=== PATIENT | female | born 1985 | race Caucasian/White ===

== ENCOUNTER 2021-07-23 14:06 | Emergency (ER) | payer MEDICAID, SELFPAY ==
--- NOTE | ~2021-07-23 | XR_ITS ---
EXAMINATION: XR chest 2V CLINICAL INFORMATION: Reason for Exam cough COMPARISON: No prior chest x-ray available in our system for comparison at the time of this dictation. TECHNIQUE: XR chest 2V Lungs and Soraya: Both lungs are clear. Pleura: Normal. Costophrenic angles are sharp. No pneumothorax. Heart: The heart is normal in size. Mediastinum: The mediastinum is within normal limits.. Bones: Skeletal structures included are normal for patient's age. XR/XR chest 2V IMPRESSION: Normal chest x-ray.
[2021-07-23 14:24] VITALS: BP 131/77; PULSE 62; RESP 18; TEMP 37.1; O2SAT 99; BMI 28.2
--- NOTE | 2021-07-23 15:56 | ED_ITS ---
HPI - Dental/Oral General Chief complaint: Dental/Oral Stated complaint: dental abscess Time Seen by Provider: 07/23/21 15:49 Source: patient Mode of arrival: ambulatory Limitations: no limitations History of Present Illness HPI Narrative: 36 y/o female presenting to the ER with left lower dental abscess and facial swelling that has been present for the last 3 days. She reports left- sided facial swelling that started yesterday and pain that extends to her ear and neck. She noticed a new bump in the back of her mouth on the left side. She reports a new onset of a cough and generally feeling unwell. Her son is sick with the ear infection and cough as well. She recently tested negative for COVID. She has a dentist at the [facility] in [place] but has not called them for this yet. she reports pain with eating and swallowing. She is able to eat and drink but her appetite is poor. MD Complaint: tooth pain Location: Tooth # (18) Onset (ago): day(s) (3) Duration: constant Severity: moderate Severity scale (1-10): 6 Relieving factors: nothing Exacerbating factors: chewing and swallowing Context: poor dental care Associated symptoms: gum swelling, pain with swallowing and ear pain Treatment prior to arrival: none Related Data Previous Rx's Medication Instructions Recorded benzonatate 100 mg capsule 100 mg PO Q6H PRN #10 cap 07/23/21 clindamycin HCl 300 mg capsule 300 mg PO Q6H 7 Days #28 cap 07/23/21 hydrocodone 5 mg-acetaminophen 325 1 tab PO Q6H PRN #10 tab 07/23/21 mg tablet ibuprofen 600 mg tablet 600 mg PO Q8H PRN #20 tab 07/23/21 Allergies Allergy/AdvReac Type Severity Reaction Status Date / Time No Known Allergies Allergy Unverified 05/20/20 17:00 Review of Systems Review of Systems: Constitutional: No Fever, No Chills ENT/Mouth: No sore throat, No Rhinorrhea, No Swallowing Difficulty, +tooth pain Cardiovascular: No Chest Pain, No SOB, No Orthopnea, No Edema Respiratory: + Cough, No Sputum, No Wheezing, No dyspnea Gastrointestinal: No Nausea, No Vomiting, No abdominal Pain Musculoskeletal: No joint pain, + Myalgias Skin: No Skin Lesions, No rash Neuro: No Weakness, No Numbness, No Dizziness, +Headache Psych: No Anxiety/Panic, No Depression Heme/Lymph: No Bruising, + Lymphadenopathy Endocrine: No Polyuria, No Polydipsia PMFSH Social History Social History Advance Directives: No Advance Directives Information Provided: No Patient : No Physical Exam Vital Signs: Vital Signs: Last Vital Signs Temp 98.6 F 07/23/21 16:09 Pulse 95 07/23/21 16:09 Resp 16 07/23/21 16:09 BP 138/75 07/23/21 16:09 Pulse Ox 99 07/23/21 16:09 Body Mass Index 28.2 Appearance: Alert. Oriented X3. No acute distress. Eyes: Pupils equal, round and reactive to light. ENT: Pharynx With moist mucous membranes, airway is patent with no tonsillomegaly, no tonsillar exudates, uvula midline normal voice. Handling secretions normally. posterior left lower jaw with a 1 cm fluctuant and tender area in the expected location of tooth 17, tooth 18. With silver dental filling, tenderness with associated gingival tenderness and swelling. Neck: Normal inspection. Neck supple. Submandibular lymphadenopathy on the left side. No neck swelling. CVS: Normal heart rate and rhythm. Pulses normal. Respiratory: No respiratory distress. Breath sounds normal. Dry hacking cough. Skin: Skin warm and dry. Normal skin color. Normal skin turgor. No rashes. Extremities: No lower extremity edema. Neuro: Oriented X 3. No motor deficit. No sensory deficit. Course Course Course Narrative: Guille 1-year-old female presenting with left-sided facial and dental pain. New onset of facial swelling this started yesterday. Pain extends to ear and neck. She has some pain with swallowing but airways patent with normal voice handling secretions normally eating and drinking normally. No neck swelling. She is nontoxic appearing with normal vital signs on arrival. She has a palpable dental abscess and is agreeable to drainage in the emergency room. Will give dose of pain control and antibiotics now. She also has a dry cough and other URI symptoms. Will get chest x-ray and COVID swab. Reevaluation(s) Reevaluation #1: Chest x-ray is clear COVID soft is negative. Dental abscess was incised with very minimal drainage. Discussed option blood working CT scan however patient would like to be discharged with oral antibiotics and treatment for pain - will plan to return to the ER if symptoms worsen despite treatment. She will follow-up with her dentist 1st thing Sunday morning. Safe for discharge home with antibiotics and pain control. MDM - Dental/Oral Lab Data Labs: Lab Results 07/23/21 Range/Units 16:10 COVID-19 (ERIKA) Negative (Negative) COVID-19 Clin Com See Note Procedures Abscess I/D Site: oral Side (if applicable): left Local Anesthetic: other anesthetic (Lollicane) Technique: incised with blade Sent for culture/gram staining?: No Irrigation: No Packing used?: none Complications: bleeding Critical Care Time Critical Care Time Critical Care Time: No Discharge Plan Discharge Clinical Impression: Dental abscess URI (upper respiratory infection) Qualifiers: URI type: unspecified URI Qualified Code(s): J06.9 - Acute upper respiratory infection, unspecified Patient Disposition: Home, Self-Care Instructions: Dental Abscess (ED), Upper Respiratory Infection (ED) Additional Instructions: take the prescribed antibiotic as directed, complete the entire course follow-up with your dentist on Sunday take the prescribed medications as needed for pain. do not drive after taking the hydrocodone, this can make you lethargic if you develop new or worsening symptoms call 911 or come back to the ER for further evaluation. Prescriptions: New clindamycin HCl 300 mg capsule 300 mg PO Q6H 7 Days Qty: 28 RF: 0 ibuprofen 600 mg tablet 600 mg PO Q8H PRN (Reason: pain) Qty: 20 RF: 0 hydrocodone-acetaminophen 5-325 mg tablet 1 tab PO Q6H PRN (Reason: pain) Qty: 10 RF: 0 benzonatate 100 mg capsule 100 mg PO Q6H PRN (Reason: cough) Qty: 10 RF: 0 Stand Alone Forms: Work/School Release
--- NOTE | 2021-07-23 16:00 | PC.NURSE ---
ot c/o mouth pain related to left cheek abscess. pt states the pain started 4 days ago and got worse gradually. she also c/o non-productive cough and sore throat. she reports she hasn't been able to eat solid foods over the past 4 days. pt denies n/v/d. pt alert and oriented x4, vss.
[2021-07-23 16:09] VITALS: BP 138/75; PULSE 95; RESP 16; TEMP 37; O2SAT 99
[2021-07-23] MEDS: HYDROcodone Bit/Acetam 5/325 TABLET 1 TAB PO (16:16)
[2021-07-23] MEDS: guaiFENesin DM 200/20/10 ML 10 ML SYRUP PO (16:16)
[2021-07-23 16:29] LABS: COVID-19 Test Negative (Negative)
[2021-07-23] MEDS: Clindamycin HCL 150 MG CAPSULE 450 MG PO (16:39)
== END 2021-07-23 17:39 | disposition home or self-care (01) ==
PROVIDERS: Physician Assistant; Emergency Provider Emergency Medicine Emergency Medical Services; PCP Nurse Practitioner Primary Care
DX: K04.7 Periapical abscess without sinus (principal); J06.9 Acute upper respiratory infection, unspecified; Z20.822 Contact with and (suspected) exposure to COVID-19
CPT/HCPCS: 36415; 41800; 71046; 87635; 99283; 99284

== ENCOUNTER → 2023-12-26 13:30 | Outpatient (BNV) | payer MEDICAID, SELFPAY | PROVIDERS: Visit Provider Physical Medicine & Rehabilitation | DX: M79.642 Pain in left hand (principal); R20.2 Paresthesia of skin | CPT/HCPCS: 95886; 95909 ==

== ENCOUNTER 2023-12-26 13:40 | Outpatient (REF) | payer MEDICAID, SELFPAY ==
--- NOTE | 2023-12-26 | EMG_ITS ---
Chief complaint: Left hand pain and numbness Reason for referral: Evaluate for Carpal Tunnel Syndrome Referred by: Minal Workman NP Procedure done: Left upper extremity NCS/EMG Precautions and/or limitations: None The limb temperature was monitored continuously and remained between 32-36 degrees C during the performance of the NCS. Nerve Conduction Studies Anti Sensory Summary Table ?Stim Site NR Onset (ms) Norm Onset (ms) Peak (ms) Norm Peak (ms) O-P Amp (?V) Norm O-P Amp Site1 Site2 Delta-0 (ms) Dist (cm) Cornel (m/s) Norm Cornel (m/s) Left Median Anti Sensory (2nd Digit) Wrist ? 2.4 3.5 <3.6 22.5 >10 Wrist 2nd Digit 2.4 14.0 58 Left Ulnar Anti Sensory (5th Digit) Wrist ? 2.2 2.8 <3.7 39.7 >15.0 Wrist 5th Digit 2.2 14.0 64 Motor Summary Table ?Stim Site NR Onset (ms) Norm Onset (ms) O-P Amp (mV) Norm O-P Amp iAmp (mV) Amp (1st) (%) Site1 Site2 Delta-0 (ms) Dist (cm) Cornel (m/s) Norm Cornel (m/s) Left Median Motor (Abd Poll Brev) Wrist ? 3.7 <3.9 9.8 >4.5 12.2 100.0 Elbow Wrist 3.3 19.0 58 >45 Elbow ? 7.0 9.9 12.3 101.0 Left Ulnar Motor (Abd Dig Minimi) Wrist ? 2.3 <3.0 9.4 >5 11.5 100.0 B Elbow Wrist 3.0 18.0 60 >45 B Elbow ? 5.3 8.7 10.6 92.6 Comparison Summary Table ?Stim Site NR Peak (ms) Norm Peak (ms) P-T Amp (?V) Site1 Site2 Delta-P (ms) Norm Delta (ms) Left Median/Radial Dig I Comparison (Digit 1 - 10cm) Median ? 2.9 <2.9 24.2 Median Radial 0.2 Radial ? 3.1 <2.8 12.0 EMG ?Side Muscle Nerve Root Ins Act Fibs Psw Amp Dur Poly Recrt Int Pat Comment Left 1stDorInt Ulnar C8-T1 Nml Nml Nml Nml Nml 0 Nml Complete Left FlexCarRad Median C6-7 Nml Nml Nml Nml Nml 0 Nml Complete Left Biceps Musculocut C5-6 Nml Nml Nml Nml Nml 0 Nml Complete Left Triceps Radial C6-7-8 Nml Nml Nml Nml Nml 0 Nml Complete Left Deltoid Axillary C5-6 Nml Nml Nml Nml Nml 0 Nml Complete FINDINGS: All motor and sensory nerves tested showed normal latencies, amplitudes and conduction velocities. Concentric needle EMG was performed in selected muscles of the left upper extremity. Study did not reveal signs of electric abnormalities as shown in the table below. IMPRESSION: 1. This is a normal study. 2. There is no electrodiagnostic evidence for median neuropathy, ulnar neuropathy, brachial plexopathy, or cervical radiculopathy. Thank you for your kind referral. Irene Castrejon MD, GINA Board Certified, [place] Board [employer] and Rehabilitation (ABPMR) Board Certified, [place] Board of Electrodiagnostic Medicine (ABEM) [place] [id number] [facility]
== END 2023-12-26 13:41 | disposition home or self-care (01) ==
LOC: HO.NEURO 13:40
PROVIDERS: Visit Provider Nurse Practitioner Primary Care
DX: R20.2 Paresthesia of skin (principal); R20.0 Anesthesia of skin
CPT/HCPCS: 95886; 95909

== ENCOUNTER 2025-06-17 11:32 | Emergency (ER) | payer MEDICAID, SELFPAY ==
--- NOTE | ~2025-06-17 | CT_ITS ---
EXAMINATION: CT HEAD WITHOUT CONTRAST CLINICAL INFORMATION: Left-sided headache COMPARISON: None available. TECHNIQUE: Contiguous axial imaging was performed from the skull base to vertex without intravenous administration of contrast. This CT examination was performed using dose optimization techniques as appropriate, variously including the following: *Automated exposure control *Adjustment of mA and/or kV according to patient size (this includes techniques or standardized protocols for targeted exams where dose is matched to indication/reason for exam; i.e. extremities or head) *Use of iterative reconstruction technique FINDINGS: There is no evidence of acute intracranial hemorrhage or edematous large vessel territorial infarction. No abnormal mass effect or midline shift is seen. Cantu to white matter differentiation is well preserved. No abnormal extra-axial fluid collections are identified. The ventricles are normal in size. No abnormal attenuation in the brain parenchyma. No acute calvarial fracture.. Paranasal sinuses and mastoid air cells are well-aerated. CT/CT head/brain wo IV con IMPRESSION: No CT evidence of acute intracranial hemorrhage or edematous territorial infarction. The cause of the patient's symptoms has not been determined. Additional/follow-up imaging as clinically indicated. Electronically signed by: Pedro Alicea MD 06/17/2025 12:50 PM EDT
[2025-06-17 11:50] VITALS: BP 128/63; PULSE 85; RESP 16; TEMP 36.6; O2SAT 95; BMI 28.4
--- NOTE | 2025-06-17 11:50 | ED.GENADULT ---
HPI - General Adult General Chief complaint: Headache Stated complaint: headache 3 days Related Data Previous Rx's ?Medication ?Instructions ?Recorded benzonatate 100 mg capsule 100 mg PO Q6H PRN cough #10 caps 07/23/21 clindamycin HCl 300 mg capsule 300 mg PO Q6H 7 days #28 caps 07/23/21 hydrocodone 5 mg-acetaminophen 325 1 tab PO Q6H PRN pain #10 tabs 07/23/21 mg tablet ibuprofen 600 mg tablet 600 mg PO Q8H PRN pain #20 tabs 07/23/21 Allergies Allergy/AdvReac Type Severity Reaction Status Date / Time No Known Allergies Allergy Verified 06/17/25 11:54 PMFSH Social History Social History Advance Directives: No Advance Directives Information Provided: No Physical Exam ED Vital Signs: Vital Signs - 24 hr 06/17/25 11:50 06/17/25 15:39 Temperature 97.8 F 97.9 F Pulse Rate 85 65 Respiratory Rate 16 18 Blood Pressure 128/63 149/66 H Pulse Oximetry 95 95 Oxygen Delivery Method Room Air Room Air BMI result Body Mass Index 28.4 Course Course Course Narrative: This is a Rapid Medical Examination (RME) performed by Silvio Bhardwaj PA-C in triage. Full HPI, ROS, assessment and treatment plan per primary provider in the Main ED. Hx: Patient is a 40 yo F presenting with a CC of headache x3 days. Reports radiation to the back of the head on the L side. No recent injury. No hx of migraines. No blurred vision or double vision. Reports light sensitivity. Taking advil and tension headache pills OTC with no relief. No N/V. PE/vitals: Neuro intact + photophobia Plan: Labs, CT head Reevaluation(s) Reevaluation #1: Patient left the emergency department before myself or any of the other clinicians could review or explain physical exam findings, test results, need or lack there of for additional testing, treatment options, or a treatment plan. Medications Administered Discontinued Medications Generic Name Dose Route Start Last Admin Trade Name Freq PRN Reason Stop Dose Admin Ibuprofen 600 mg 06/17/25 15:39 06/17/25 15:45 Ibuprofen 600 Mg Tablet PO 06/17/25 15:40 600 mg ONCE ONE Administration Medical Decision Making Lab Data 06/17/25 12:10 06/17/25 12:10 Labs: Lab Results 06/17/25 Range/Units 12:10 WBC 7.9 (4.8-10.8) X10*3/uL RBC 4.62 (4.20-5.50) X10*6/uL Hgb 12.0 (12.0-16.0) g/dl Hct 38.4 (37.0-47.0) % MCV 83.1 (80.0-98.0) fL MCH 26.0 L (27.0-33.0) pg MCHC 31.3 (31.0-35.0) g/dl RDW 15.3 (11.0-16.0) % Plt Count 367 (160-400) X10*3/uL MPV 9.7 (9.4-12.3) fL Immature Gran % (Auto) 0.1 (0.0-0.4) % Neut % (Auto) 75.5 H (45-73) % Lymph % (Auto) 13.0 L (20-40) % [place] % (Auto) 7.6 (2-11) % Eos % (Auto) 3.3 (0-4) % Baso % (Auto) 0.5 (0-2) % Lymph # (Auto) 1.0 L (1.2-4.9) X10*3/uL [place] # (Auto) 0.6 (0.1-1.2) X10*3/uL Eos # (Auto) 0.3 (0.0-0.4) X10*3/uL Baso # (Auto) 0.0 (0.0-0.2) X10*3/uL Abs Immat Gran (auto) 0.01 (0.00-0.03) X10*3/uL Absolute Neuts (auto) 5.9 (2.0-8.3) x10*3/uL Absolute Nucleated RBC 0.000 (0.0-0.012) X10*3/uL Nucleated RBC % (auto) 0.0 (0.0-0.2) /100WBC ESR 5 (0-20) MM/HR Sodium 139 (135-145) mmol/L Potassium 3.5 (3.3-5.1) mmol/L Chloride 110 H (96-108) mmol/L Carbon Dioxide 24 (22-29) mmol/L Anion Gap 9 L (12-20) BUN 8 L (9-16) mg/dL Creatinine 0.60 (0.5-1.4) mg/dL Estim Creat Clear Calc 131.5 Estimated GFR > 60 Random Glucose 73 (60-115) mg/dL Calcium 8.5 (8.4-10.2) mg/dL Magnesium 1.8 (1.6-2.6) mg/dL Total Bilirubin 0.3 (0.0-1.0) mg/dL AST 26 (5-31) U/L ALT 38 H (0-31) U/L Alkaline Phosphatase 54 (39-117) U/L C-Reactive Protein 1.55 H (< or = 0.50) mg/dL Total Protein 6.1 L (6.5-8.0) g/dL Albumin 3.6 (3.5-5.0) g/dL Beta HCG, Quant < 2 mIU/mL Discharge Plan Discharge Clinical Impression: Headache Patient Disposition: Left W/O Completing Treatment Prescriptions: No Action clindamycin HCl 300 mg capsule 300 mg PO Q6H 7 Days Qty: 28 0RF ibuprofen 600 mg tablet 600 mg PO Q8H PRN (Reason: pain) Qty: 20 0RF hydrocodone-acetaminophen 5-325 mg tablet 1 tab PO Q6H PRN (Reason: pain) Qty: 10 0RF benzonatate 100 mg capsule 100 mg PO Q6H PRN (Reason: cough) Qty: 10 0RF Discharge Date/Time: 06/17/25 20:01
[2025-06-17 12:25] LABS: MANUAL DIFF FLAG NO
[2025-06-17 12:27] LABS: Hematocrit 38.4 % (37.0-47.0); Hemoglobin 12.0 g/dl (12.0-16.0); Imm Gran Abs Auto 0.01 X10*3/uL (0.00-0.03); Imm Gran Pct Auto 0.1 % (0.0-0.4); Lymphocytes Absolute Auto 1.0 X10*3/uL (1.2-4.9); Mean Corpuscular HGB Conc 31.3 g/dl (31.0-35.0); Mean Corpuscular Hemoglobin 26.0 pg (27.0-33.0); Mean Corpuscular Volume 83.1 fL (80.0-98.0); NRBC Abs Auto 0.000 X10*3/uL (0.0-0.012); NRBC Pct Auto 0.0 /100WBC (0.0-0.2); Platelet Count 367 X10*3/uL (160-400); Red Blood Count 4.62 X10*6/uL (4.20-5.50); White Blood Count 7.9 X10*3/uL (4.8-10.8)
[2025-06-17 12:56] LABS: Alanine Aminotransferase 38 U/L (0-31); Albumin Level 3.6 g/dL (3.5-5.0); Alkaline Phosphatase 54 U/L (39-117); Anion Gap 9 (12-20); Aspartate Amino Transferase 26 U/L (5-31); Blood Urea Nitrogen 8 mg/dL (9-16); Calcium 8.5 mg/dL (8.4-10.2); Carbon Dioxide 24 mmol/L (22-29); Chloride 110 mmol/L (96-108); Creatinine Clr Calc Pharmacy 131.5; Estimated Glomerular Filt Rate > 60; Magnesium 1.8 mg/dL (1.6-2.6); Potassium 3.5 mmol/L (3.3-5.1); Sodium 139 mmol/L (135-145); Total Protein 6.1 g/dL (6.5-8.0)
--- OUTSIDE RECORDS SUMMARY | 2025-06-17 15:29 | XMS_ITS | Clinical Summary ---
Author Organization [employer] [facility] Address [id number] [place] [id number] Care Team Providers Care Can Marker Name Role Phone Neptali Lopez MD Primary Care Provider [phone] Social History Tobacco Use Types Packs/Day Years Used Date Smoking Tobacco: Never Assessed Comments Unknown Sex and Gender Information Value Date Recorded Sex Assigned at Not on file Legal Sex Female 6:14 AM EST Gender Identity Not on file Sexual Orientation Not on file Plan of Treatment Health Maintenance Due Date Last Done Comments Breast Cancer Screening 1984 DTaP,Tdap,and Td Vaccines (1 - Tdap) 01/29/2003 Hepatitis B Vaccines (1 of 3 - 19+ 3-dose series) 01/29/2003 Cervical Cancer Screening: P ap Smear 01/29/2005 HPV Vaccines (1 - 3-dose SCD M series) 01/29/2011 Depression Screening 09/03/2024 COVID-19 Vaccine (1 - 2023-2 5 season) 2025 Influenza Vaccine (#1) 2025 RSV Immunization Adult Patie nts (1 - 1-dose 75+ series) 01/29/2059 HIB Vaccines Aged Out No longer eligi ble based on patient's age to complete this topic Hepatitis A Vaccines Aged Out No long er eligible based on patient's age to complete this topic IPV Vaccines Aged Out No longer eligi ble based on patient's age to complete this topic MMR Vaccines Aged Out No longer eligi ble based on patient's age to complete this topic Meningococcal ACWY Vaccine Aged Out N o longer eligible based on patient's age to complete this topic Meningococcal B Vaccine Aged Out No l onger eligible based on patient's age to complete this topic Pneumococcal Vaccine: Pediat rics (0 to 5 Years) and At-Risk Patients (6 to 49 Years) Aged Out No longer eligible b ased on patient's age to complete this topic RSV Immunization Patients Un bob 20 months Aged Out No longer eligible b ased on patient's age to complete this topic Varicella Vaccines Aged Out No longer eligible based on patient's age to complete this topic Care Teams Can Marker Relationship Specialty Start Date End Date Neptali Lopez MD [address] [place] [id number] PCP - General Internal Medicine 02/08/18
[2025-06-17 15:39] VITALS: BP 149/66; PULSE 65; RESP 18; TEMP 36.6; O2SAT 95
== END 2025-06-17 20:01 | disposition left against medical advice (07) ==
PROVIDERS: Physician Assistant Medical; Emergency Provider Emergency Medicine; PCP Nurse Practitioner Primary Care
DX: R51.9 Headache, unspecified (principal); H53.143 Visual discomfort, bilateral; Z79.899 Other long term (current) drug therapy
CPT/HCPCS: 36415; 70450; 80053; 83735; 84702; 85025; 85652; 86140; 99282; 99284

== ENCOUNTER → 2025-06-17 11:54 | Outpatient (BNV) | payer MEDICAID, SELFPAY | PROVIDERS: PCP Nurse Practitioner Primary Care; Visit Provider Radiology Diagnostic Ultrasound | DX: R51.9 Headache, unspecified (principal) | CPT/HCPCS: 70450 ==

== ENCOUNTER → 2025-08-17 11:00 | Outpatient (BNV) | payer MEDICAID, SELFPAY | PROVIDERS: PCP Nurse Practitioner Primary Care; Visit Provider Radiology Body Imaging | DX: N63.15 Unspecified lump in the right breast, overlapping quadrants (principal) | CPT/HCPCS: 76642; 77062; 77066 ==

== ENCOUNTER 2025-08-17 11:01 | Outpatient (REF) | payer MEDICAID, SELFPAY ==
--- NOTE | ~2025-08-17 | MM_ITS ---
EXAMINATION(S): 1. MM DIAGNOSTIC DIGITAL BREAST TOMOSYNTHESIS, BILATERAL 2. TARGETED ULTRASOUND OF THE RIGHT BREAST CLINICAL INFORMATION: Right breast lump at 12 o'clock position. Today, patient mentioned right breast lump and green nipple discharge. COMPARISON: None. This is a baseline study. TECHNIQUE: Digital breast tomosynthesis is performed in both the mediolateral oblique and craniocaudal views along with computer-aided detection (CAD). Synthesized 2D images are generated from the tomosynthesis. FINDINGS: BREAST COMPOSITION: There are scattered areas of fibroglandular density. RIGHT BREAST: No significant masses, suspicious calcifications or other abnormalities are seen. In particular, no suspicious findings adjacent to the skin BB marker placed in the upper outer quadrant. Targeted ultrasound of the right breast was performed at: -Location of the palpable concern as indicated by the patient. The survey performed along the 11:00-1:00 axis did not reveal suspicious sonographic findings. -Subareolar region. No dilated ducts seen. LEFT BREAST: No significant masses, suspicious calcifications or other abnormalities are seen. MM/MM tomosynthesis diagnostic BI IMPRESSION: RIGHT BREAST: Negative, no evidence of malignancy. Clinical follow-up is recommended for the clinical concerns, independent of imaging findings. Otherwise, normal interval follow-up mammogram is recommended in 12 months. LEFT BREAST: Negative, no mammographic evidence of malignancy. Normal interval follow-up is recommended in 12 months. ASSESSMENT: BI-RADS: Category 1: Negative RECOMMENDATION: 1. Patient should be managed based on the clinical impression. 2. Otherwise, routine annual screening mammography. Results were provided to the patient at time of visit by the technologist. This patient's information was entered into a reminder system with a target due date for their next mammogram. Electronically signed by: Denilson Perea MD 08/17/2025 12:07 PM [facility]
== END 2025-08-17 11:02 | disposition home or self-care (01) ==
LOC: HO.MAMMO 11:01
PROVIDERS: PCP Nurse Practitioner Primary Care; Visit Provider Nurse Practitioner Primary Care
DX: N63.15 Unspecified lump in the right breast, overlapping quadrants (principal)
CPT/HCPCS: 76642; 77062; 77066

== ENCOUNTER 2025-08-22 18:51 | Emergency (ER) | payer MEDICAID, SELFPAY ==
--- OUTSIDE RECORDS SUMMARY | 2025-07-29 14:00 | XMS_ITS | Encounter Summary ---
Author Organization [facility] Address [address] [place] [address] Care Team Providers Care Food Counter Attendant Name Role Phone Shay Jackson Primary Care Provider [phone] Reason for Referral * Consultation (STAT) - Authorized Specialty Diagnoses / Procedures Referred By Arely shaw Referred To Contact General Surgery Diagnoses Mass overlapping multiple quadrants of right breast Nipple discharge Shay Jackson ANP [address] [place] [address] Phone: tel: fax: Hunter Wei MD [address] [place] [address] Drive 3rd [place] [address] Phone: tel: Referral ID Status Reason Start Date Expiration Date Visits Requested Visits Authorized [id number] Authorized Specialty Services Required 08/19/2026 12 12 * PFT (Routine) - Authorized Specialty Diagnoses / Procedures Referred By Arely shaw Referred To Contact Diagnoses Moderate persistent asthma without complication Procedures Pulmonary Function Test Shay Jackson ANP [address] [place] [address] Phone: tel: fax: [facility] [address] [place] [phone] Phone: tel: fax: Referral ID Status Reason Start Date Expiration Date V isits Requested Visits Authorized [id number] Authorized 07/29/2025 07/29/2026 1 1 * Consultation (Routine) - Closed Specialty Diagnoses / Procedures Referred By Arely shaw Referred To Contact Behavioral Health Diagnoses Stress Procedures Referral to Behavioral Health Shay Jackson ANP [address] [place] [address] Phone: tel: fax: Referral ID Status Reason Start Date Expiration Date V isits Requested Visits Authorized [id number] Closed Specialty Services Required 07/29/2025 07/29/2026 1 1 * Imaging (STAT) - Authorized Specialty Diagnoses / Procedures Referred By Arely shaw Referred To Contact Radiology Diagnoses Mass overlapping multiple quadrants of right breast Procedures BI US Breast Limited Right Shay Jackson ANP [address] [place] [address] Phone: tel: fax: [address] [phone] Phone: tel: fax: Referral ID Status Reason Start Date Expiration Date V isits Requested Visits Authorized [id number] Authorized 07/29/2025 07/29/2026 1 1 * Imaging (STAT) - Authorized Specialty Diagnoses / Procedures Referred By Arely shaw Referred To Contact Radiology Diagnoses Mass overlapping multiple quadrants of right breast Procedures BI Mammogram Diagnostic Tomosynthesis Bilateral Shay Jackson ANP [address] [place] [address] Phone: tel: fax: [address] [phone] Phone: tel: fax: Referral ID Status Reason Start Date Expiration Date V isits Requested Visits Authorized [id number] Authorized 07/29/2025 07/29/2026 1 1 Reason for Visit * Reason Comments Annual Exam Encounter Details Date Type Department Care Team (Late st Contact Info) Description 07/29/2025 2:00 PM EST Office Visit [facility] [address] [place] [address] Shay Jackson ANP [address] [place] [address] Healthcare maintenance (Primary Dx); Not immune to hepatitis B virus; Screening mammogram for breast cancer; Screening for cervical cancer; Encounter for immunization; Mass overlapping multiple quadrants of right breast; Nipple discharge; Routine screening for STI (sexually transmitted infection); Fatigue, unspecified type; Moderate persistent asthma without complication; Abnormal weight loss; Dietary counseling; Exercise counseling; Stress; Sheltered homelessness Social History Tobacco Use Types Packs/Day Years Used Date Smoking Tobacco: Former Cigarettes Passive Smoke Exposure: Current Smokeless Tobacco: Never Alcohol Use Standard Drinks/Week Comments Not Currently 0 (1 standard drink = 0.6 oz pur e alcohol) Depression Answer Date Recorded Patient Health Questionnaire-9 Score 13 07/29/2025 Patient Health Questionnaire-9 Score 13 07/29/2025 Last PHQ-9: Questionnaire Data Not on file 1 09/28/2024 Housing Stability Answer Date Recorded What is your housing situation today? I do not have housing (Staying with others, in a hotel, in a fci, living outside on the street, on a beach, in a car, or in a park 07/29/[address] you li ve. Do you have problems with any of the following? None of the above 07/29/2025 Food Insecurity Answer Date Recorded Within the past 12 months, y ou worried that your food would run out before you got money to buy more: Never True 07/29/2025 Within the past 12 months,th e food you bought just didn't last and you didn't have enough money to get more: Never True Transportation Answer Date Recorded In the past 12 months, has l ack of transportation kept you from medical appts, meetings, work or from getting things needed for daily living? No 07/29/2025 Utilities Answer Date Recorded In the past 12 months, has t he electric, gas, oil or water company threatened to shut off services in your home? No 07/29/2025 Depression Answer Date Recorded Patient Health Questionnaire-2 Score 4 07/29/2025 Internet Access Answer Date Recorded Internet Access Q1 Yes 07/29/2025 Internet Access Q2 Not on file 07/29/2025 Comments Unknown Sex and Gender Information Value Date Recorded Sex Assigned at Female 07/03/2022 10:21 AM EDT Legal Sex Female 10:21 AM EDT Gender Identity Female 07/03/2022 10:21 AM EDT Sexual Orientation Straight 07/03/2022 10 :21 AM EDT documented as of this encounter Last Filed Vital Signs Vital Sign Reading Time Taken Comments Blood Pressure 110/80 07/29/2025 2:02 PM EST Pulse 76 07/29/2025 2:02 PM EST Temperature 36.8 C (98.2 F) 07/29/2025 2:02 PM EST Respiratory Rate 13 07/29/2025 2:02 PM EST Oxygen Saturation 98% 07/29/2025 2:02 PM EST Inhaled Oxygen Concentration - - Weight 72.7 kg (160 lb 6 oz) 07/29/2025 2:02 PM EST Height 167.6 cm (5' 6 ) 07/29/2025 2:02 PM EST Body Mass Index 25.89 07/29/2025 2:02 PM EST documented in this encounter Functional Status * Over the past 2 weeks, how often have you been bothered by any of the following problems? Question Answer Date of Assessment Author Patient Health Questionnaire -2 Score 4 07/29/2025 2:50 PM EST Briana Alonzo MA * Little interest or pleasure in doing things Answer Date of Assessment Author Nearly every day 07/29/2025 2:50 PM EST Briana Alonzo MA * Feeling down, depressed, or hopeless Answer Date of Assessment Author Several days 07/29/2025 2:50 PM EST Heidy Alonzo MA * Trouble falling or staying asleep, or sleeping too much Answer Date of Assessment Author More than half the days 07/29/2025 2:50 PM EST Briana Ralph MA * Feeling tired or having little energy Answer Date of Assessment Author Nearly every day 07/29/2025 2:50 PM Briana Arndt MA * Poor appetite or overeating Answer Date of Assessment Author More than half the days 07/29/2025 2:50 PM Briana Arndt MA * Feeling bad about yourself - or that you are a failure or have let yourself or your family down Answer Date of Assessment Author Not at all 07/29/2025 2:50 PM Heidy Arndt MA * Trouble concentrating on things, such as reading the newspaper or watching television Answer Date of Assessment Author Not at all 07/29/2025 2:50 PM Heidy Arndt MA * Moving or speaking so slowly that other people could have noticed? Or the opposite - being so fidgety or restless that you have been moving around a lot more than usual. Answer Date of Assessment Author More than half the days 07/29/2025 2:50 PM Briana Barnett MA * Thoughts that you would be better off or hurting yourself in some way Answer Date of Assessment Author Not at all 07/29/2025 2:50 PM Heidy Arndt MA * Patient Health Questionnaire-9 Score Answer Date of Assessment Author 13 07/29/2025 2:50 PM Heidy Arndt MA * Over the last 2 weeks, how often have you been bothered by any of the following problems? Question Answer Date of Assessment Author Feeling nervous, anxious, or on edge 0 07/29/2025 2:49 PM Briana Arndt MA Not being able to stop or co ntrol worrying 1 07/29/2025 2:49 PM Briana Arndt MA Worrying too much about diff erent things 0 07/29/2025 2:49 PM Briana Arndt MA Trouble relaxing 2 07/29/2025 2:49 PM Briana Barnett MA Being so restless that it is hard to sit still 2 07/29/2025 2:49 PM Briana Arndt MA Becoming easily annoyed or irritable 0 07/29/2025 2:49 PM Briana Arndt MA Feeling afraid as if somethi ng awful might happen 0 07/29/2025 2:49 PM Briana Arndt MA LAINEY-7 Total Score 5 07/29/2025 2:49 PM Briana Arndt MA documented as of this encounter Progress Notes * SERGIO Graff - 07/29/2025 2:00 PM EST Images from the original note were not included. SUBJECTIVE: Jaclyn Fink is a 40 y.o. year old female who presents for routine physical exam. Denies recent illness, injury, or hospitalization. 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 Acute Concerns: Seen 07/27/25 for URI at [facility]. Started on symbicort and Rx'd nebulizer. [place] visit for [place]17[place]25 [place] [facility] left w/o completing treatment. Labs notable for elevated CRP. Normal ESR. due: Pap - next week at [facility] M[facility]o - to be scheduled Wants PFTs - having increased SOB since quitting smoking. Using symbicort 4 times/d. IZ: flu, covid, PCV20, HPV, HEP B non-immune Jaclyn Fink, 40 years Breast Mass (Right Breast) - Noticed a bump in the right breast approximately 2 weeks ago - Initially small, perceived increase in size over 2 weeks - No pain associated with the mass - Detected during self breast exam - Family history of breast cancer on mother's side (3 aunts diagnosed in their 50s and 60's, 2 underwent mastectomy) Fatigue and Weakness - Feeling very weak and exhausted recently - Desire to sleep all day - Difficulty sleeping at night, sleeps during daytime - Feels drained and lacking strength to perform daily activities - Reports increased stress due to recent housing instability and relocation Weight Loss - Unintentional weight loss from 180 lbs to 160 lbs over the past month - Last recorded weight at walk-in clinic was 163 lbs a few days ago - Denies drug use - Quit smoking and marijuana use approximately 8 months ago - Eating once daily, consumes a large meal Respiratory Symptoms - Reports frequent coughing - Experiences shortness of breath, especially with exertion (e.g., climbing stairs, walking uphill) - Uses albuterol inhaler 4-5 times daily - No longer has nebulizer due to contamination - Reports urinary leakage when coughing, new onset - Practices Kegel exercises, but still experiences leakage (recommended to cont w/ more diligent routine) Menstrual Irregularity - Last menstrual period was followed by another period 2 weeks later - Otherwise reports regular cycles Polyuria and Thirst - Reports frequent urination - Reports increased thirst Living in fci with family Social History Social History Narrative Not on file Problem List[1] Surgical History[2] Family History[3] Review of Systems Constitutional: Positive for fatigue. Negative for chills and fever. HENT: Negative for sore throat. Respiratory: Positive for shortness of breath. Negative for cough and wheezing. Cardiovascular: Negative for chest pain. Gastrointestinal: Negative for constipation and diarrhea. Endocrine: Negative for polydipsia, polyphagia and polyuria. Genitourinary: Negative for dysuria. Psychiatric/Behavioral: Positive for sleep disturbance. The patient is nervous/anxious. OBJECTIVE: Vitals: 07/29/25 1402 BP: 110/80 BP Location: Left arm Patient Position: Sitting BP Cuff Size: Adult Pulse: 76 Resp: 13 Temp: 98.2 ??F (36.8 ??C) TempSrc: Oral SpO2: 98% Weight: 160 lb 6 oz (72.7 kg) Height: 5' 6 (1.676 m) Physical Exam Exam conducted with a cardiology rn present (Briana Alonzo). Constitutional: Appearance: Normal appearance. HENT: Head: Normocephalic and atraumatic. Right Ear: Tympanic membrane, ear canal and external ear normal. Left Ear: Tympanic membrane, ear canal and external ear normal. Eyes: General: No scleral icterus. Extraocular Movements: Extraocular movements intact. Pupils: Pupils are equal, round, and reactive to light. Cardiovascular: Rate and Rhythm: Normal rate and regular rhythm. Pulmonary: Effort: Pulmonary effort is normal. Breath sounds: Normal breath sounds. Chest: Breasts: Right: No inverted nipple or skin change. Left: No inverted nipple or skin change. Comments: Hard, tender mildly mobile mass 12 o'clock proximal to R areola, no dcharge, bilateral barbell nipple piercings, no lymphadenopathy L or R, L breast no abnormal findings Lymphadenopathy: Upper Body: Right upper body: No supraclavicular, axillary or pectoral adenopathy. Left upper body: No supraclavicular, axillary or pectoral adenopathy. Neurological: Mental Status: She is alert. ASSESSMENT/PLAN Jaclyn was seen today for annual exam. Diagnoses and all orders for this visit: Healthcare maintenance (Primary) Pap next week at [facility] as ordered IZ updated Dental and eye self refer Clarify BCM at follow-up Not immune to hepatitis B virus Accepts HBV IZ today Screening mammogram for breast cancer Needs diag mammo and US d/t findings Screening for cervical cancer Pap scheduled per pt Encounter for immunization - COVID-19 VACCINE [id number] (Comirnaty) 19 yrs + - FLU VACCINE TRIVALENT [id number] (Fluarix) 19 yrs + - HEPLISAV-B VACCINE ADULT 19 yrs + Mass overlapping multiple quadrants of right breast - BI Mammogram Diagnostic Tomosynthesis Bilateral; Future - BI US Breast Limited Right; Future Nipple discharge X2 mos, greenish and foul smelling Rec STAT imaging as ordered. Call [facility] if not scheduled w/in 1 week Routine screening for STI (sexually transmitted infection) - Hepatitis C Antibody with Reflex to HCV, RNA, Quantitative, Real-Time PCR; Future - HIV-1/2 Antigen and Antibodies, Fourth Generation, with Reflexes; Future - Syphilis Screen; Future Fatigue, unspecified type Optimize sleep, r/o DM, thyroid dysfunction, anemia, b12 def, electrolyte abn as below Concerningly has had subjective 20lb wt loss unintentional in last few mos. Does report thirst, urinary freq. - CBC auto differential; Future - TSH W/Reflex to FT4; Future - Vitamin B12; Future - Comprehensive Metabolic Panel; Future - Hemoglobin A1c; Future Moderate persistent asthma without complication START: - budesonide-formoterol (Symbicort) 80-4.5 MCG/ACT inhaler; Inhale 2 puffs in the morning and at bedtime. Rinse mouth with water after use to reduce aftertaste and incidence of candidiasis. Do not swallow. Will confirm w/ DME specialist neb ordered. Needs neb for home use when sick. Abnormal weight loss As above Dietary counseling Lifestyle recommendations to improve heart health & lower cholesterol: be as active as able, ideally exercise 150min moderate intensity or 75min vigorous intensity weekly; increase intake of vegetables, fruits, whole grains, fish. Try to minimize intake of sugary or greasy food and drink. Use olive oil or vegetable, peanut, canola, or similar oil for cooking. Decrease or stop drinking alcoholif you drink, quit/decrease smoking if you smoke. Exercise counseling As above This note was drafted using Ambient (AI) technology. The patient/patient's guardian has been informed and has consented to the use of this technology: Yes Based on our discussion, I have outlined the following instructions for you: - You have received the first dose of the hepatitis B vaccine. You will need to get the next dose later. - A special breast X-ray (mammogram) has been ordered to check the lump in your right breast. - Go to your scheduled Pap smear to check for cervical cancer. - Get blood tests as ordered to check for HIV, hepatitis, syphilis, gonorrhea, chlamydia, blood count, thyroid, vitamin B12, and blood sugar. - Try to improve your sleep habits and find ways to manage stress. I have asked a counselor to giveyou a call. - Use your Symbicort inhaler two times every day, even if you feel fine. - Check the expiration date on your inhaler and throw it away if it is . - Use your albuterol inhaler only when you need it for symptoms. - If you feel anxious after using Symbicort, let your healthcare provider know. - You will have a breathing test (pulmonary function test) as ordered. - Eat smaller, more frequent meals to help keep your weight steady. - Do Kegel exercises by squeezing the muscles you use to stop urinating. Do 10 repetitions, two times a day. Next appointment(s): - Pap smear appointment next week at [facility] office. follow-up here 2 mo Thank you again for your visit, and we look forward to supporting you in your journey to better health. Follow Up: as above Medications Ordered Prior to Encounter[4] 08/19/25 Addendum Reviewed imaging w/ CNM, would recommend breast surgeon evaluation given palpable mass but not seenon imaging. Will place referral. Patient: Jaclyn Fink MR#: [id number] : 1985 Acct:[id number] Age/Sex: 40 / F ADM Date: 08/17/25 Loc: HO.MAMMO Attending Dr: Shay Jackson NP Ordering Physician: SHAY JACKSON NP Results: 1Negative Date of Service: 08/17/25 Follow Up: 1 Year From Orig ina Mammogram Procedure(s): MM tomosynthesis diagnostic BI Accession Number(s): [id number] cc: SHAY JACKSON NP Reason For Exam: R breast lump proximal to R nipple 12 o'clock EXAMINATION(S): 1. MM DIAGNOSTIC DIGITAL BREAST TOMOSYNTHESIS, BILATERAL 2. TARGETED ULTRASOUND OF THE RIGHT BREAST CLINICAL INFORMATION: Right breast lump at 12 o'clock position. Today, patient mentioned right breast lump and green nipple discharge. COMPARISON: None. This is a baseline study. TECHNIQUE: Digital breast tomosynthesis is performed in both the mediolateral oblique and craniocaudal views along with computer-aided detection (CAD). Synthesized 2D images are generated from the tomosynthesis. FINDINGS: BREAST COMPOSITION: There are scattered areas of fibroglandular density. RIGHT BREAST: No significant masses, suspicious calcifications or other abnormalities are seen. In particular, no suspicious findings adjacent to the skin BB marker placed in the upper outer quadrant. Targeted ultrasound of the right breast was performed at: -Location of the palpable concern as indicated by the patient. The survey performed along the 11:00-1:00 axis did not reveal suspicious sonographic findings. -Subareolar region. No dilated ducts seen. LEFT BREAST: No significant masses, suspicious calcifications or other abnormalities are seen. MM/MM tomosynthesis diagnostic BI IMPRESSION: RIGHT BREAST: Negative, no evidence of malignancy. Clinical follow-up is recommended for the clinical concerns, independent of imaging findings. Otherwise, normal interval follow-up mammogram is recommended in 12 months. LEFT BREAST: Negative, no mammographic evidence of malignancy. Normal interval follow-up is recommended in 12 months. ASSESSMENT: BI-RADS: Category 1: Negative RECOMMENDATION: 1. Patient should be managed based on the clinical impression. 2. Otherwise, routine annual screening mammography. Results were provided to the patient at time of visit by the technologist. This patient's information was entered into a reminder system with a target due date for their next mammogram. US/US Breast RT Limited Mamm Only IMPRESSION: RIGHT BREAST: Negative, no evidence of malignancy. Clinical follow-up is recommended for the clinical concerns, independent of imaging findings. Otherwise, normal interval follow-up mammogram is recommended in 12 months. LEFT BREAST: Negative, no mammographic evidence of malignancy. Normal interval follow-up is recommended in 12 months. ASSESSMENT: BI-RADS: Category 1: Negative [1] Patient Active Problem List Diagnosis Moderate persistent asthma without complication Moderate persistent asthma [2] History reviewed. No pertinent surgical history. [3] No family history on file. [4] Current Outpatient Medications on File Prior to Visit Medication Sig Dispense Refill albuterol (2.5 MG/3ML) 0.083% nebulizer solution Take 3 mL (2.5 mg) by nebulization every 4 (four) hours if needed for wheezing. 75 mL 11 albuterol (Ventolin HFA) 108 (90 Base) MCG/ACT inhaler INHALE 2 PUFFS EVERY 4 (FOUR) HOURS IF NEEDED FOR WHEEZING OR SHORTNESS OF BREATH. 18 g 1 montelukast (Singulair) 10 MG tablet Take 1 tablet by mouth at bed time. [DISCONTINUED] albuterol (Ventolin HFA) 108 (90 Base) MCG/ACT inhaler INHALE 2 PUFFS EVERY 4 (FOUR)HOURS IF NEEDED FOR WHEEZING OR SHORTNESS OF BREATH. 18 g 1 [DISCONTINUED] budesonide-formoterol (Symbicort) 80-4.5 MCG/ACT inhaler Inhale 2 puffs in the morning and at bedtime. Rinse mouth with water after use to reduce aftertaste and incidence of candidiasis. Do not swallow. 1 each 3 No current facility-administered medications on file prior to visit. documented in this encounter Miscellaneous Notes * Addendum Note - SERGIO Graff - 07/29/2025 2:00 PM ESTAddended by: SHAY JACKSON on: 08/19/2025 11:18 AM Modules accepted: Orders documented in this encounter Plan of Treatment Upcoming Encounters Date Type Department Care Team (Late st Contact Info) Description 10/01/2025 1:00 PM EST Office Visit [facility] [address] [place] [id number] Shay Jackson, ANP [address] [place] [address] Scheduled Orders Name Type Priority Associated Diagnoses Orde r Schedule Hepatitis C Antibody with Reflex to HCV, RNA, Quantitative, Real-Time PCR Lab Routine Routine screening for STI (sexually transmitted infection) Expected: 07/29/2025 (Approximate), Expires: 07/29/2026 HIV-1/2 Antigen and Antibodies, Fourth Generation, with Reflexes Lab Routine Routine screening for STI (sexually transmitted infection) Expected: 07/29/2025 (Approximate), Expires: 07/29/2026 Syphilis Screen Lab Routine Routine screening for STI (sexually transmitted infection) Expected: 07/29/2025 (Approximate), Expires: 07/29/2026 CBC auto differential Lab Routine Fatigue, unspecified type Expected: 07/29/2025 (Approximate), Expires: 07/29/2026 TSH W/Reflex to FT4 Lab Routine Fatigue, unspecified type Expected: 07/29/2025 (Approximate), Expires: 07/29/2026 Vitamin B12 Lab Routine Fatigue, unspecified type Expected: 07/29/2025 (Approximate), Expires: 07/29/2026 Comprehensive Metabolic Panel Lab Routine Fatigue, unspecified type Expected: 07/29/2025 (Approximate), Expires: 07/29/2026 Hemoglobin A1c Lab Routine Fatigue, unspecified type Expected: 07/29/2025 (Approximate), Expires: 07/29/2026 Pulmonary Function Test PFT Routine Moderate persistent asthma without complication Expected: 07/29/2025, Expires: 01/26/2026 Scheduled Referrals Name Type Priority Associated Diagnoses Orde r Schedule Referral to Breast Surgery Outpatient Referral STAT Mass overlapping multiple quadrants of right breast Nipple discharge Expected: 08/19/2025 (Approximate), Expires: 08/19/2026 documented as of this encounter Procedures Procedure Name Priority Date/Time Associated Diagnosis Comments BI US BREAST LIMITED RIGHT STAT 08/17/2025 11:39 AM EST Mass overlapping multiple quadrants of right breast BI MAMMOGRAM DIAGNOSTIC TOMOSYNTHESIS BILATERAL STAT 08/17/2025 11:05 AM EST Mass overlapping multiple quadrants of right breast documented in this encounter Results * BI US Breast Limited Right (08/17/2025 11:39 AM EST) Anatomical Region Laterality Modality Breast Right Ultrasound 08/17/2025 11:3 9 AM EST Narrative 08/17/2025 12:10 PM EST [address] [place] [address] Ultrasound Report Signed Patient: Jaclyn Fink MR#: [id number] : 1985 Acct:[id number] Age/Sex: 40 / F ADM Date: 08/17/25 Loc: HO.MAMMO Attending Dr: Shay Jackson NP Ordering Physician: SHAY JACKSON NP Date of Service: 08/17/25 Procedure(s): US Breast RT Limited Mamm Only Accession Number(s): [id number] cc: SHAY JACKSON NP Reason for Exam: R breast lump x 2 weeks, proximal to R nipple 12 o'clock EXAMINATION(S): 1. MM DIAGNOSTIC DIGITAL BREAST TOMOSYNTHESIS, BILATERAL 2. TARGETED ULTRASOUND OF THE RIGHT BREAST CLINICAL INFORMATION: Right breast lump at 12 o'clock position. Today, patient mentioned right breast lump and green nipple discharge. COMPARISON: None. This is a baseline study. TECHNIQUE: Digital breast tomosynthesis is performed in both the mediolateral oblique and craniocaudal views along with computer-aided detection (CAD). Synthesized 2D images are generated from the tomosynthesis. FINDINGS: BREAST COMPOSITION: There are scattered areas of fibroglandular density. RIGHT BREAST: No significant masses, suspicious calcifications or other abnormalities are seen. In particular, no suspicious findings adjacent to the skin BB marker placed in the upper outer quadrant. Targeted ultrasound of the right breast was performed at: -Location of the palpable concern as indicated by the patient. The survey performed along the 11:00-1:00 axis did not reveal suspicious sonographic findings. -Subareolar region. No dilated ducts seen. LEFT BREAST: No significant masses, suspicious calcifications or other abnormalities are seen. US/US Breast RT Limited Mamm Only IMPRESSION: RIGHT BREAST: Negative, no evidence of malignancy. Clinical follow-up is recommended for the clinical concerns, independent of imaging findings. Otherwise, normal interval follow-up mammogram is recommended in 12 months. LEFT BREAST: Negative, no mammographic evidence of malignancy. Normal interval follow-up is recommended in 12 months. ASSESSMENT: BI-RADS: Category 1: Negative RECOMMENDATION: 1. Patient should be managed based on the clinical impression. 2. Otherwise, routine annual screening mammography. Results were provided to the patient at time of visit by the technologist. This patient's information was entered into a reminder system with a target due date for their next mammogram. Electronically signed by: Denilson Perea MD 08/17/2025 12:07 PM [facility] Dictated By: Denilson Perea MD Signed By: <Electronically signed by Denilson Perea MD in OV> 08/17/25 1207 DD/ 1139 TD/TT: 08/17/25 1143 Tetryl Blender Operator: Procedure Note Donotuseinterpreter, Image - 08/17/2025 [facility] [address] [place] [address] Ultrasound Report Signed Patient: Jaclyn Fink [facility]#: [id number] : 1985Acct:[id number] Age/Sex: 40 / FADM Date: 08/17/25 Loc: HO.MAMMO Attending Dr: Shay Jackson NP Ordering Physician: SHAY JACKSON NP Date of Service: 08/17/25 Procedure(s): US Breast RT Limited Mamm Only Accession Number(s): [id number] cc: SHAY JACKSON NP Reason for Exam: R breast lump x 2 weeks, proximal to R nipple 12 o'clock EXAMINATION(S): 1. MM DIAGNOSTIC DIGITAL BREAST TOMOSYNTHESIS, BILATERAL 2. TARGETED ULTRASOUND OF THE RIGHT BREAST CLINICAL INFORMATION: Right breast lump at 12 o'clock position. Today, patient mentioned right breast lump and green nipple discharge. COMPARISON: None. This is a baseline study. TECHNIQUE: Digital breast tomosynthesis is performed in both the mediolateral oblique and craniocaudal views along with computer-aided detection (CAD). Synthesized 2D images are generated from the tomosynthesis. FINDINGS: BREAST COMPOSITION: There are scattered areas of fibroglandular density. RIGHT BREAST: No significant masses, suspicious calcifications or other abnormalities are seen. In particular, no suspicious findings adjacent to the skin BB marker placed in the upper outer quadrant. Targeted ultrasound of the right breast was performed at: -Location of the palpable concern as indicated by the patient. The survey performed along the 11:00-1:00 axis did not reveal suspicious sonographic findings. -Subareolar region. No dilated ducts seen. LEFT BREAST: No significant masses, suspicious calcifications or other abnormalities are seen. US/US Breast RT Limited Mamm Only IMPRESSION: RIGHT BREAST: Negative, no evidence of malignancy. Clinical follow-up is recommended for the clinical concerns, independent of imaging findings. Otherwise, normal interval follow-up mammogram is recommended in 12 months. LEFT BREAST: Negative, no mammographic evidence of malignancy. Normal interval follow-up is recommended in 12 months. ASSESSMENT: BI-RADS: Category 1: Negative RECOMMENDATION: 1. Patient should be managed based on the clinical impression. 2. Otherwise, routine annual screening mammography. Results were provided to the patient at time of visit by the technologist. This patient's information was entered into a reminder system with a target due date for their next mammogram. Electronically signed by: Denilson Perea MD 08/17/2025 12:07 PM EST Dictated By: Denilson Perea MD Signed By: <Electronically signed by Denilson Perea MD in OV> 08/17/25 1207 DD/ 1139 TD/TT: 08/17/25 1143 Tetryl Blender Operator: us Shay [facility] IMG US PROCEDURES Final Result * BI Mammogram Diagnostic Tomosynthesis Bilateral (08/17/2025 11:05 AM EST) Anatomical Region Laterality Modality Breast Bilateral Mammography 08/17/2025 11:0 5 AM EST Narrative 08/17/2025 12:10 PM EST [facility] [address] [place] [address] Mammography Report Signed Patient: Jaclyn Fink MR#: [id number] : 1985 Acct:[id number] Age/Sex: 40 / F ADM Date: 08/17/25 Loc: HO.MAMMO Attending Dr: Shay Jackson NP Ordering Physician: SHAY JACKSON NP Results: 1Negative Date of Service: 08/17/25 Follow Up: 1 Year From [facility] ina Mammogram Procedure(s): MM tomosynthesis diagnostic BI Accession Number(s): [id number] cc: SHAY JACKSON NP Reason For Exam: R breast lump proximal to R nipple 12 o'clock EXAMINATION(S): 1. MM DIAGNOSTIC DIGITAL BREAST TOMOSYNTHESIS, BILATERAL 2. TARGETED ULTRASOUND OF THE RIGHT BREAST CLINICAL INFORMATION: Right breast lump at 12 o'clock position. Today, patient mentioned right breast lump and green nipple discharge. COMPARISON: None. This is a baseline study. TECHNIQUE: Digital breast tomosynthesis is performed in both the mediolateral oblique and craniocaudal views along with computer-aided detection (CAD). Synthesized 2D images are generated from the tomosynthesis. FINDINGS: BREAST COMPOSITION: There are scattered areas of fibroglandular density. RIGHT BREAST: No significant masses, suspicious calcifications or other abnormalities are seen. In particular, no suspicious findings adjacent to the skin BB marker placed in the upper outer quadrant. Targeted ultrasound of the right breast was performed at: -Location of the palpable concern as indicated by the patient. The survey performed along the 11:00-1:00 axis did not reveal suspicious sonographic findings. -Subareolar region. No dilated ducts seen. LEFT BREAST: No significant masses, suspicious calcifications or other abnormalities are seen. MM/MM tomosynthesis diagnostic BI IMPRESSION: RIGHT BREAST: Negative, no evidence of malignancy. Clinical follow-up is recommended for the clinical concerns, independent of imaging findings. Otherwise, normal interval follow-up mammogram is recommended in 12 months. LEFT BREAST: Negative, no mammographic evidence of malignancy. Normal interval follow-up is recommended in 12 months. ASSESSMENT: BI-RADS: Category 1: Negative RECOMMENDATION: 1. Patient should be managed based on the clinical impression. 2. Otherwise, routine annual screening mammography. Results were provided to the patient at time of visit by the technologist. This patient's information was entered into a reminder system with a target due date for their next mammogram. Electronically signed by: Denilson Perea MD 08/17/2025 12:07 PM EST Dictated By: Denilson Perea MD Signed By: <Electronically signed by Denilson Perea MD in OV> 08/17/25 1207 DD/ 1105 TD/TT: 08/17/25 1130 Tetryl Blender Operator: Procedure Note Donotuseinterpreter, Image - 08/17/2025 [facility] [address] [place] [address] Mammography Report Signed Patient: Jaclyn Fink [facility]#: [id number] : 1985Acct:[id number] Age/Sex: 40 / FADM Date: 08/17/25 Loc: HO.MAMMO Attending Dr: Shay Jackson NP Ordering Physician: SHAY JACKSON NPResults: 1Negative Date of Service: 08/17/25Follow Up: 1 Year From Orig ina Mammogram Procedure(s): MM tomosynthesis diagnostic BI Accession Number(s): [id number] cc: SHAY JACKSON NP Reason For Exam: R breast lump proximal to R nipple 12 o'clock EXAMINATION(S): 1. MM DIAGNOSTIC DIGITAL BREAST TOMOSYNTHESIS, BILATERAL 2. TARGETED ULTRASOUND OF THE RIGHT BREAST CLINICAL INFORMATION: Right breast lump at 12 o'clock position. Today, patient mentioned right breast lump and green nipple discharge. COMPARISON: None. This is a baseline study. TECHNIQUE: Digital breast tomosynthesis is performed in both the mediolateral oblique and craniocaudal views along with computer-aided detection (CAD). Synthesized 2D images are generated from the tomosynthesis. FINDINGS: BREAST COMPOSITION: There are scattered areas of fibroglandular density. RIGHT BREAST: No significant masses, suspicious calcifications or other abnormalities are seen. In particular, no suspicious findings adjacent to the skin BB marker placed in the upper outer quadrant. Targeted ultrasound of the right breast was performed at: -Location of the palpable concern as indicated by the patient. The survey performed along the 11:00-1:00 axis did not reveal suspicious sonographic findings. -Subareolar region. No dilated ducts seen. LEFT BREAST: No significant masses, suspicious calcifications or other abnormalities are seen. MM/MM tomosynthesis diagnostic BI IMPRESSION: RIGHT BREAST: Negative, no evidence of malignancy. Clinical follow-up is recommended for the clinical concerns, independent of imaging findings. Otherwise, normal interval follow-up mammogram is recommended in 12 months. LEFT BREAST: Negative, no mammographic evidence of malignancy. Normal interval follow-up is recommended in 12 months. ASSESSMENT: BI-RADS: Category 1: Negative RECOMMENDATION: 1. Patient should be managed based on the clinical impression. 2. Otherwise, routine annual screening mammography. Results were provided to the patient at time of visit by the technologist. This patient's information was entered into a reminder system with a target due date for their next mammogram. Electronically signed by: Denilson Perea MD 08/17/2025 12:07 PM EST RP Dictated By: Denilson Perea MD Signed By: <Electronically signed by Denilson Perea MD in OV> 08/17/25 1207 DD/ 1105 TD/TT: 08/17/25 1130 Tetryl Blender Operator: Shay [facility] IMG BI PROCEDURES Final Result documented in this encounter Visit Diagnoses Diagnosis Healthcare maintenance- Primary Not immune to hepatitis B virus Screening mammogram for breast cancer Screening for cervical cancer Screening for malignant neoplasm of the cervix Encounter for immunization Mass overlapping multiple quadrants of right breast Nipple discharge Other sign and symptom in breast Routine screening for STI (sexually transmitted infection) Screening examination for venereal disease Fatigue, unspecified type Moderate persistent asthma without complication Abnormal weight loss Loss of weight Dietary counseling Dietary surveillance and counseling Exercise counseling Stress Other psychological or physical stress, not elsewhere classified Sheltered homelessness documented in this encounter Additional Health Concerns Assessment Noted Time PHQ-9 Depression Total Score: 13 025 2:50 PM EST documented as of this encounter Care Teams Food Counter Attendant Relationship Specialty Start Date End Date Shay Jackson ANP [address] [place] [id number] PCP - General Family Medicine 09/26/19 documented as of this encounter
[2025-08-22 19:04] VITALS: BP 135/80; PULSE 71; RESP 16; TEMP 36.8; O2SAT 96; BMI 24.7
--- NOTE | 2025-08-22 19:06 | ED.ABDPAIN ---
HPI - Abdominal Pain General Chief Complaint: Abdominal Pain Stated Complaint: leaking through belly button Time Seen by Provider: 08/23/25 00:22 History of Present Illness HPI narrative: Patient is a 40-year-old female presents today with having umbilical pain. There is some wet moist lesion in the umbilicus. There is minimal discharge noted. Some burning inside the umbilicus. No nausea no vomiting no change in bowel movement no fever no chills. No systemic complaints. Patient does not think she is . Timing and duration of menstruation is normal. From home. No pain on urination. Related Data Previous Rx's ?Medication ?Instructions ?Recorded benzonatate 100 mg capsule 100 mg PO Q6H PRN cough #10 caps 07/23/21 clindamycin HCl 300 mg capsule 300 mg PO Q6H 7 days #28 caps 07/23/21 hydrocodone 5 mg-acetaminophen 325 1 tab PO Q6H PRN pain #10 tabs 07/23/21 mg tablet ibuprofen 600 mg tablet 600 mg PO Q8H PRN pain #20 tabs 07/23/21 clotrimazole 1 % topical cream 1 appl topical BID #15 grams 08/23/25 (Lotrimin AF (clotrimazole)) Allergies Allergy/AdvReac Type Severity Reaction Status Date / Time No Known Allergies Allergy Verified 08/22/25 19:07 Review of Systems Review of Systems No fever no chills no chest pain or shortness of breath PMFSH Past Medical History Attestation statement: The following information was validated with the patient. Social History Social History Advance Directives: No Advance Directives Information Provided: Yes Do you have a plan to hurt others: No Plan Physical Exam ED Exam Exam: Appearance: Alert. Oriented X3. No acute distress. Eyes: Pupils equal, round and reactive to light. ENT: Pharynx normal. Neck: Normal inspection. Neck supple. No lymph nodes noted. No crepitus CVS: Normal heart rate and rhythm. Pulses normal. Normal S1 and S2 Respiratory: No respiratory distress. Breath sounds normal. No Wheezing. No rales Abdomen: Soft and nontender. No rigidity. No distention. good BS x4 Skin: Skin warm and dry. Normal skin color. Normal skin turgor. umbilicus showed no redness there is some crusted material at the base of the umbilicus. There is no abscess that was palpable. No fluctuance. No discharge noted. Extremities: No lower extremity edema. Neurovascular intact to all extremities. No Lacerations. No Rash Neuro: Oriented X 3. No motor deficit. No sensory deficit. Moving all extermities. No slurred speech Vital Signs: Vital Signs - 24 hr 08/22/25 19:04 Temperature 98.3 F Pulse Rate 71 Respiratory Rate 16 Blood Pressure 135/80 Pulse Oximetry 96 Oxygen Delivery Method Room Air BMI result Body Mass Index 24.7 Course Course Course Narrative: This is a rapid medical exam. Deferred additional HPI, ROS, PE to primary provider. 40 yo female with PMH of asthma here with swelling/pain around the belly button, leaking from belly button x 4 days. No abdominal surgical history. Will need labs, UA LMP 08/03. VSS Medical Decision Making Medical Decision Making MDM Narrative: Question fungal infection. Patient's sugar is normal no evidence for diabetes. Electrolytes normal. White count is normal. Abdomen soft nontender there is no nausea no vomiting no diarrhea. Will check patient's urine for and UA. If that is negative will discharge patient home with some fungal cream. Close follow-up on an outpatient basis. patient eloped prior to urine can be obtained. Differential Diagnosis Differential Diagnoses: The differential diagnosis associated with the presentation includes Fungal infection Admission/Observation Consideration of admission/observation: Escalation of care including admission/observation considered Lab Data [facility] Lab Attestation statement: I reviewed the patient's lab results. 08/22/25 19:32 08/22/25 19:32 Labs: Lab Results 08/22/25 Range/Units 19:32 WBC 7.0 (4.8-10.8) X10*3/uL RBC 4.84 (4.20-5.50) X10*6/uL Hgb 12.6 (12.0-16.0) g/dl Hct 38.3 (37.0-47.0) % MCV 79.1 L (80.0-98.0) fL MCH 26.0 L (27.0-33.0) pg MCHC 32.9 (31.0-35.0) g/dl RDW 14.6 (11.0-16.0) % Plt Count 319 (160-400) X10*3/uL MPV 10.0 (9.4-12.3) fL Immature Gran % (Auto) 0.1 (0.0-0.4) % Neut % (Auto) 70.8 (45-73) % Lymph % (Auto) 14.3 L (20-40) % Gilmer % (Auto) 7.7 (2-11) % Eos % (Auto) 6.5 H (0-4) % Baso % (Auto) 0.6 (0-2) % Lymph # (Auto) 1.0 L (1.2-4.9) X10*3/uL Gilmer # (Auto) 0.5 (0.1-1.2) X10*3/uL Eos # (Auto) 0.5 H (0.0-0.4) X10*3/uL Baso # (Auto) 0.0 (0.0-0.2) X10*3/uL Abs Immat Gran (auto) 0.01 (0.00-0.03) X10*3/uL Absolute Neuts (auto) 4.9 (2.0-8.3) x10*3/uL Absolute Nucleated RBC 0.000 (0.0-0.012) X10*3/uL Nucleated RBC % (auto) 0.0 (0.0-0.2) /100WBC Sodium 142 (135-145) mmol/L Potassium 4.6 D (3.3-5.1) mmol/L Chloride 108 (96-108) mmol/L Carbon Dioxide 24 (22-29) mmol/L Anion Gap 15 (12-20) BUN 14 (9-16) mg/dL Creatinine 0.74 (0.5-1.4) mg/dL Estim Creat Clear Calc 93.6 Estimated GFR > 60 Random Glucose 90 (60-115) mg/dL Calcium 9.8 D (8.4-10.2) mg/dL Total Bilirubin 0.2 (0.0-1.0) mg/dL Direct Bilirubin < 0.2 (0.0-0.5) mg/dL AST 27 (5-31) U/L ALT 24 (0-31) U/L Alkaline Phosphatase 84 (39-117) U/L Total Protein 7.6 (6.5-8.0) g/dL Albumin 4.5 (3.5-5.0) g/dL Radiology Impression Discussion of test interpretation with radiology: I have reviewed the radiologist's reading. Social Determinants Patient?s care significantly limited by Social Determinants of Health including: Problems related to primary support group Discharge Plan Discharge Clinical Impression: Umbilicus discharge Patient Disposition: Elopement Instructions: Miconazole (On the skin) (Lotrimin AF, Micatin, Desenex, Antifungal) Additional Instructions: keep the area dry. Keep the area clean. Please use the fungal cream twice a day. Prescriptions: New clotrimazole [Lotrimin AF (clotrimazole)] 1 % cream 1 appl topical BID Qty: 15 0RF No Action clindamycin HCl 300 mg capsule 300 mg PO Q6H 7 Days Qty: 28 0RF ibuprofen 600 mg tablet 600 mg PO Q8H PRN (Reason: pain) Qty: 20 0RF hydrocodone-acetaminophen 5-325 mg tablet 1 tab PO Q6H PRN (Reason: pain) Qty: 10 0RF benzonatate 100 mg capsule 100 mg PO Q6H PRN (Reason: cough) Qty: 10 0RF Referrals: Minal Workman BROADCAST PROGRAM DIRECTOR [Primary Care Provider, Internal Medicine] - 08/25/25 Print Language: Danish
--- NOTE | 2025-08-22 19:21 | MHC.EDTECH ---
first attempt in calling patient to triage for blood draw at 1920, no answer
[2025-08-22 19:37] LABS: MANUAL DIFF FLAG NO
[2025-08-22 19:38] LABS: Hematocrit 38.3 % (37.0-47.0); Hemoglobin 12.6 g/dl (12.0-16.0); Imm Gran Abs Auto 0.01 X10*3/uL (0.00-0.03); Imm Gran Pct Auto 0.1 % (0.0-0.4); Lymphocytes Absolute Auto 1.0 X10*3/uL (1.2-4.9); Mean Corpuscular HGB Conc 32.9 g/dl (31.0-35.0); Mean Corpuscular Hemoglobin 26.0 pg (27.0-33.0); Mean Corpuscular Volume 79.1 fL (80.0-98.0); NRBC Abs Auto 0.000 X10*3/uL (0.0-0.012); NRBC Pct Auto 0.0 /100WBC (0.0-0.2); Platelet Count 319 X10*3/uL (160-400); Red Blood Count 4.84 X10*6/uL (4.20-5.50); White Blood Count 7.0 X10*3/uL (4.8-10.8)
[2025-08-22 19:51] LABS: Alanine Aminotransferase 24 U/L (0-31); Albumin Level 4.5 g/dL (3.5-5.0); Alkaline Phosphatase 84 U/L (39-117); Anion Gap 15 (12-20); Aspartate Amino Transferase 27 U/L (5-31); Blood Urea Nitrogen 14 mg/dL (9-16); Calcium 9.8 mg/dL (8.4-10.2); Carbon Dioxide 24 mmol/L (22-29); Chloride 108 mmol/L (96-108); Creatinine Clr Calc Pharmacy 93.6; Estimated Glomerular Filt Rate > 60; Potassium 4.6 mmol/L (3.3-5.1); Sodium 142 mmol/L (135-145); Total Protein 7.6 g/dL (6.5-8.0)
--- OUTSIDE RECORDS SUMMARY | 2025-08-22 21:16 | XMS_ITS | Encounter Summary ---
Author Organization [employer] Address [address] [place] [address] Care Team Providers Care Food Service Kitchen Supervisor Name Role Phone Minal Workman Primary Care Provider [phone] Encounter Details Date Type Department Care Team ([facility] st Contact Info) Description 08/17/2025 Orders Only [facility] [address], [place] [phone] Minal Workman ANP [address] [place] [address] Nipple discharge (Primary Dx) Social History Tobacco Use Types Packs/Day Years [...] with others, in a hotel, in a assisted, living outside on the street, on a [...] AM EDT documented as of this encounter Progress Notes * SERGIO Graff - 08/17/2025 1:25 PM EST Call to pt to notify imaging was reassuring - will order prolactin to check for possible galactorrhea - in addition to labs already ordered. documented in this encounter Plan of Treatment Upcoming Encounters Date Type Department Care Team (Late st Contact Info) Description 10/01/2025 1:00 PM EST Office Visit [facility] [address] [place] [address] Minal Workman ANP [address] [place] [address] Scheduled Orders Name Type Priority Associated Diagnoses Orde r Schedule Prolactin Lab Routine Nipple discharge Expected: 08/17/2025 (Approximate), Expires: 08/17/2026 documented as of this encounter Visit Diagnoses Diagnosis Nipple discharge- Primary Other sign and symptom in breast documented in this encounter Additional Health Concerns Assessment Noted Time PHQ-9 Depression Total Score: 13 025 2:50 PM EST documented as of this encounter Care Teams Food Service Kitchen Supervisor Relationship Specialty Start Date End Date Minal Workman ANP [address] [place] [address] PCP - General Family Medicine 09/26/19 documented as of this encounter
--- OUTSIDE RECORDS SUMMARY | 2025-08-22 21:17 | XMS_ITS | Encounter Summary ---
Author Organization [employer] Address [address] [place] [address] Care Team Providers Care Adult Services Librarian Name Role Phone Minal Workman Primary Care Provider [phone] Reason for Visit * Reason Onset Date Comments Nurse Triage 01/07/2025 Encounter Details Date Type Department Care Team (Late st Contact Info) Description 01/07/2025 Telephone [facility] [address], [place] [phone] Minal Workman ANP [address] [place] [address] Nurse Triage Social History Tobacco Use Types Packs/Day Years Used Date Smoking Tobacco: Every Day Cigarettes Smokeless Tobacco: Never Alcohol Use Standard Drinks/Week Comments Not Currently 0 (1 standard drink = 0.6 oz pur e alcohol) Comments Unknown Sex and Gender Information Value Date Recorded Sex Assigned at Female 07/03/2022 10:21 AM EDT Legal Sex Female 10:21 AM EDT Gender Identity Female 07/03/2022 10:21 AM EDT Sexual Orientation Straight 07/03/2022 10 :21 AM EDT documented as of this encounter Miscellaneous Notes * Telephone Encounter - Lyndsay Phan - 01/07/2025 2:03 PM EDT Symptom: Asthma Attack - Caller Reports Outcome: Schedule an urgent appointment (within 1 hour) or talk to a nurse or provider soon Reason: Any trouble breathing through the mouth The caller accepted this outcome. documented in this encounter Plan of Treatment Upcoming Encounters Date Type Department Care Team (Late st Contact Info) Description 10/01/2025 1:00 PM EST Office Visit [facility] [address] [place] [address] Minal Workman ANP [address] [place] [address] documented as of this encounter Visit Diagnoses Not on filedocumented in this encounter Care Teams Adult Services Librarian Relationship Specialty Start Date End Date Minal Workman ANP [address] [place] [address] PCP - General Family Medicine 09/26/19 documented as of this encounter
--- OUTSIDE RECORDS SUMMARY | 2025-08-22 21:17 | XMS_ITS | Encounter Summary ---
Author Organization [employer] Address [address] [facility] [address] [place] [address] Care Team Providers Care Circuit Breaker Assembler Name Role Phone Minal Workman Primary Care Provider [phone] Encounter Details Date Type Department Care Team (Late st Contact Info) Description 12/28/2023 Telephone [facility] [address] [place] [phone] Minal Workman ANP [address] [place] [phone] Social History Tobacco Use Types Packs/Day Years [...] AM EDT documented as of this encounter Plan of Treatment Upcoming Encounters Date Type Department Care Team (Late st Contact Info) Description 10/01/2025 1:00 PM EST Office Visit [facility] [address] [place] [phone] Minal Workman ANP [address] [place] [phone] documented as of this encounter Visit Diagnoses Not on filedocumented in this encounter Care Teams Circuit Breaker Assembler Relationship Specialty Start Date End Date Minal Workman ANP [address] [place] [address] PCP - General Family Medicine 09/26/19 documented as of this encounter
--- OUTSIDE RECORDS SUMMARY | 2025-08-22 21:17 | XMS_ITS | Clinical Summary ---
Author Organization [employer] Address [address] [facility] [address] [place] [address] Care Team Providers Care Geosciences Associate Professor Name Role Phone Ji Shay HILL Primary Care Provider [phone] Allergies No known active allergies Medications * This document contains information received from the source organization and may not represent a complete record from that organization. montelukast (Singulair) 10 MG tablet Take 1 tablet by mouth at bed time. 022 Active albuterol (Ventolin HFA) 108 (90 Base) MCG/ACT inhalerIndicati ons:Moderate persistent asthma without complication INHALE 2 PUFFS EVERY 4 (FOUR) HOURS IF NEEDED FOR WHEEZING OR SHORTNESS OF BREATH. 18 g 1 025 Active budesonide-form oterol (Symbicort) 80-4.5 MCG/ACT inhalerIndicati ons:Moderate persistent asthma without complication Inhale 2 puffs in the morning and at bedtime. Rinse mouth with water after use to reduce aftertaste and incidence of candidiasis. Do not swallow. 1 each 5 025 2024 Active albuterol (2.5 MG/3ML) 0.083% nebulizer solutionIndicat ions:Moderate persistent asthma without complication Take 3 mL (2.5 mg) by nebulization every 4 (four) hours if needed for wheezing. 75 mL 11 025 2025 Active albuterol (2.5 MG/3ML) 0.083% nebulizer solutionIndicat ions:Moderate persistent asthma without complication Take 3 mL (2.5 mg) by nebulization every 4 (four) hours if needed for wheezing. 75 mL 11 024 2024 Discontinued(R eorder (will not trigger notification to Pharmacy)) budesonide-form oterol (Symbicort) 80-4.5 MCG/ACT inhalerIndicati ons:Moderate persistent asthma without complication Inhale 2 puffs in the morning and at bedtime. Rinse mouth with water after use to reduce aftertaste and incidence of candidiasis. Do not swallow. 1 each 3 024 2024 Discontinued(R eorder (will not trigger notification to Pharmacy)) albuterol (Ventolin HFA) 108 (90 Base) MCG/ACT inhalerIndicati ons:Moderate persistent asthma without complication INHALE 2 PUFFS EVERY 4 (FOUR) HOURS IF NEEDED FOR WHEEZING OR SHORTNESS OF BREATH. 18 g 1 025 2024 Discontinued(R eorder (will not trigger notification to Pharmacy)) Active Problems Problem Noted Date Diagnosed Date Moderate persistent asthma 06/30/2024 Moderate persistent asthma without complication 08/16/2022 Assessment & Plan (07/27/2025 8:00 PM EST): Orders: albuterol (Ventolin HFA) 108 (90 Base) MCG/ACT inhaler; INHALE 2 PUFFS EVERY 4 (FOUR) HOURS IF NEEDED FOR WHEEZING OR SHORTNESS OF BREATH. Assessment & Plan (08/16/2022 3:28 PM EST): Poorly controlled Start symbicort b.i.d Continue albuterol q. 4-6 hours PFT's ordered Reviewed ED precautions to include lack of responsiveness to treatment, worsening SOB. Follow up with PCP 1 month Encounters * This document contains information received from the source organization and may not represent a complete record from that organization. Date Type Department Care Team Description 08/22/2025 Orders Only GENERIC EXTERNAL DATA DEPARTMENT Provider, Generic External Data 08/19/2025 Telephone [facility] [address] [place] [phone] Shay Jackson, SERGIO Referral 08/19/2025 Telephone [facility] [address] [place] [address] Emily Mcarthur CNM chart prep 08/17/2025 Results Follow-Up [address] [address] Shay Jackson ANP BI Mammogram Diagnostic Tomosynthesis Bilateral, BI US Breast Limited Right 08/17/2025 Orders Only [address] [address] Shay Jackson ANP Nipple discharge (Primary Dx) 08/14/[address] [address] Shay Jackson ANP Nurse Triage 08/13/[address] [address] Shay Jackson ANP Appointment Request 08/06/[address] [address] Shay Jackson ANP Durable Medical Equipment (nebulizer) 08/05/[address] [address] Cyndy Arce NP Moderate persistent asthma without complication 07/29/2025 2:00 PM EST Office Visit [address] [address] Shay Jackson ANP Healthcare maintenance (Primary Dx); Not immune to hepatitis B virus; Screening mammogram for breast cancer; Screening for cervical cancer; Encounter for immunization; Mass overlapping multiple quadrants of right breast; Nipple discharge; Routine screening for STI (sexually transmitted infection); Fatigue, unspecified type; Moderate persistent asthma without complication; Abnormal weight loss; Dietary counseling; Exercise counseling; Stress; Sheltered homelessness 07/29/2025 Travel 07/28/[address] [address] Shay aJckson ANP Chart prep 07/27/2025 5:40 PM EST Office Visit [facility] WALK-IN [address] [address] Cyndy Arce NP Nasal congestion; Moderate persistent asthma without complication 07/27/2025 Travel 07/21/2025 Patient Outreach [address] [address] Shay Jackson ANP Pre-visit Planning (Pre-visit planning - unable to leave a message, not able to receive calls at this time. ) 06/17/2025 Orders Only [facility] External Provider, [facility] from Last 3 Months Immunizations Immunization Administration Dates Next Due HepB-CpG 07/29/2025 Influenza injectable quadrivalent preservative f ree 08/09/2020,10/16/2019 Influenza, Split (incl. purified surface antigen ) 10/07/2013 Influenza, intradermal, quad rivalent, preservative free 04/24/2012 Influenza, seasonal, injectable, preservative fr ee 07/29/2025 Moderna Covid-19 Vaccine 12+ 05/25/2021,04/27/20 21 Pfizer Covid-19 Vaccine 12+ 07/29/2025 Tdap 09/26/2019 Social History Tobacco Use Types Packs/Day Years [...] with others, in a hotel, in a longterm, living outside on the street, on a [...] Orientation Straight 07/03/2022 10 :21 AM EDT Last Filed Vital Signs Vital Sign Reading [...] Mass Index 25.89 07/29/2025 2:02 PM EST Plan of Treatment Upcoming Encounters Date Type Department Care Team (Late st Contact Info) Description 10/01/2025 1:00 PM EST Office Visit [facility] [address] [place] [address] Shay Jackson ANP [address] [place] [address] Health Maintenance Due Date Last Done Comments HIV Screening 1985 Disability Screening 1984 Alcohol/Substance Use Screening 1996 Family Planning (PISQ) 01/29/1999 HPV Vaccines (1 - 3-dose series) 01/29/1999 Pneumococcal Vaccine: Pediatrics (0 to 5 Years) and At-Risk Patients (6 to 49) Years (1 of 2 - PCV) 01/29/2003 Pap Smear 01/29/2005 Cervical Cancer Screening 01/29/2014 HPV/Cotest 01/29/2014 Hepatitis B Vaccines (2 of 2 - CpG 2-dose series) 08/26/2025 07/29/2025 Depression Monitoring 01/26/2026 07/29/2025, 025 SDOH Screening 07/29/2026 07/29/2025 Tobacco Screening 08/17/2026 08/17/2025 Mammogram 08/17/2027 08/17/2025, 08/17/2025 DTaP/Tdap/Td Vaccines (3 - Td or Tdap) 09/26/2029 09/26/2019, 04/01/2014 Zoster Vaccines (1 of 2) 01/29/2034 RSV Patients and Patients Aged 60 years or older (1 - 1-dose 75+ series) 01/29/2059 Hepatitis C Screening Completed 11/14/2019 COVID-19 Vaccine Completed 07/29/2025, , 05/25/2021, Additional history exists Influenza Vaccine Completed 07/29/2025, , 10/16/2019, Additional history exists HIB Vaccines Aged Out No longer eligi [...] patient's age to complete this topic Meningococcal Vaccine Aged Out No dada mae eligible based on patient's age to complete this topic RSV under 20 months Aged Out No longe r eligible based on patient's age to complete this topic Rotavirus Vaccines Aged Out No longer eligible based on patient's age to complete this topic Procedures Procedure Name Priority Date/Time Associated Diagnosis Comments BASIC METABOLIC PANEL Routine 08/22/2025 7:32 PM EST HEPATIC FUNCTION PANEL Routine 7:32 PM EST CBC WITH AUTO DIFFERENTIAL Routine 08/22/2025 7:32 PM EST BI US BREAST LIMITED RIGHT STAT 08/17/2025 11:39 AM EST Mass overlapping multiple quadrants of right breast BI MAMMOGRAM DIAGNOSTIC TOMOSYNTHESIS BILATERAL STAT 08/17/2025 11:05 AM EST Mass overlapping multiple quadrants of right breast POCT COVID-19 AG MILLER ID NOW Routine 07/27/2025 5:56 PM EST Nasal congestion POCT INFLUENZA A (ID NOW RAPID MOLECULAR) Routine 07/27/2025 5:56 PM EST Nasal congestion POCT INFLUENZA B (ID NOW RAPID MOLECULAR) Routine 07/27/2025 5:55 PM EST Nasal congestion CT HEAD WO CONTRAST Routine 06/17/2025 1 2:25 PM EDT JEANNETTE HISTORICAL HEPATITIS C ANTIBODY RFLX Routine 11/14/2019 11:00 AM EDT from Last 3 Months or Most Recently Relevant to Health Maintenance Results * (ABNORMAL) CBC auto differential (08/22/2025 7:32 PM EST) White Blood Count 7.0 4.8 - 10.8 X10*3/uL [facility] Red Blood Count 4.84 4.20 - 5.50 X10*6/uL [facility] Hemoglobin 12.6 12.0 - 16.0 g/dl [facility] Hematocrit 38.3 37.0 - 47.0 % [facility] Mean Corpuscular Volume 79.1(L) 80.0 - 98.0 fL [facility] Mean Corpuscular Hemoglobin 26.0(L) 27.0 - 33.0 pg [facility] Mean Corpuscular HGB Conc 32.9 31.0 - 35.0 g/dl [facility] Red Cell Distribution Width 14.6 11.0 - 16.0 % [facility] Platelet Count 319 160 - 400 X10*3/uL [facility] Mean Platelet Volume 10.0 9.4 - 12.3 fL [facility] Neutrophils Percent Auto 70.8 45 - 73 % [facility] Imm Gran Pct Auto 0.1 0.0 - 0.4 % [facility] Lymphocytes Percent Auto 14.3(L) 20 - 40 % [facility] Monocytes Percent Auto 7.7 2 - 11 % [facility] Eosinophils Percent Auto 6.5(H) 0 - 4 % [facility] Basophils Percent Auto 0.6 0 - 2 % [facility] NRBC Pct Auto 0.0 0.0 - 0.2 /100WBC [facility] Neutrophils Absolute Auto 4.9 2.0 - 8.3 x10*3/uL [facility] Imm Gran Abs Auto 0.01 0.00 - 0.03 X10*3/uL [facility] Lymphocytes Absolute Auto 1.0(L) 1.2 - 4.9 X10*3/uL [facility] Monocytes Absolute Auto 0.5 0.1 - 1.2 X10*3/uL [facility] Eosinophils Absolute Auto 0.5(H) 0.0 - 0.4 X10*3/uL [facility] Basophils Absolute Auto 0.0 0.0 - 0.2 X10*3/uL [facility] NRBC Abs Auto 0.000 0.0 - 0.012 X10*3/uL [facility] 08/22/2025 7:32 PM EST 08/22/2025 7:36 PM EST us Generic External Data Provider LAB BLOOD ORDERAB LES Final Result [facility] [address] [place] [phone] * Hepatic Function Panel (08/22/2025 7:32 PM EST) Bilirubin, Total 0.2 0.0 - 1.0 mg/dL [facility] Bilirubin, Direct <0.2 0.0 - 0.5 mg/dL [facility] Aspartate Amino Transferase 27 5 - 31 U/L [facility] Alanine Aminotransferase 24 0 - 31 U/L [facility] Total Protein 7.6 6.5 - 8.0 g/dL [facility] Albumin Level 4.5 3.5 - 5.0 g/dL [facility] Alkaline Phosphatase 84 39 - 117 U/L [facility] 08/22/2025 7:32 PM EST 08/22/2025 7:36 PM EST us Generic External Data Provider LAB BLOOD ORDERAB LES Final Result [facility] [address] [place] [address] [phone] * Basic Metabolic Panel (08/22/2025 7:32 PM EST) Sodium 142 135 - 145 mmol/L [facility] Potassium 4.6 3.3 - 5.1 mmol/L [facility] Chloride 108 96 - 108 mmol/L [facility] Carbon Dioxide 24 22 - 29 mmol/L [facility] Anion Gap 15 12 - 20 [facility] Urea Nitrogen (BUN) 14 9 - 16 mg/dL [facility] Creatinine, Serum 0.74 0.5 - 1.4 mg/dL [facility] Creatinine Clr Calc Pharmacy 93.6 [facility] Comment:Provided height and weight: 167.64 cm,69.4 kg.eGFR (calculated from the MDRD study equation) and eCrCl(calculated from the Cockcroft-Gault equation) are based ondifferent parameters and may not yield comparable results.If eCrCl result is absurd, please check patient'sheight/weight. Estimated Glomerular Filt Rate >60 [facility] Comment:Chronic Kidney Disea se: Estimated GFR < 60 mL/min/[id number] Kidney Disease: Estimated GFR < 15 mL/min/1.73m2 Glucose 90 60 - 115 mg/dL [facility] Calcium 9.8 8.4 - 10.2 mg/dL [facility] 08/22/2025 7:32 PM EST 08/22/2025 7:36 PM EST us Generic External Data Provider LAB BLOOD ORDERAB LES Final Result [facility] [address] [place] [address] [phone] * BI US Breast Limited Right (08/17/2025 11:39 AM EST) Anatomical Region Laterality Modality Breast Right Ultrasound 08/17/2025 11:3 9 AM EST Narrative 08/17/2025 12:10 PM EST [facility] [address] [place] [address] Ultrasound Report Signed Patient: Jaclyn Fnik MR#: [id number] : 1985 Acct:[id number] Age/Sex: 40 / F ADM Date: 08/17/25 Loc: HO.MAMMO Attending Dr: Shay Jackson NP Ordering Physician: SHAY JACKSON NP Date of Service: 08/17/25 Procedure(s): US Breast RT Limited Mamm Only Accession Number(s): [id number] cc: SHAY JACKSON NP Reason for Exam: [...] by: Denilson Perea MD 08/17/2025 12:07 PM [facility] Dictated By: Denilson Perea MD Signed By: <Electronically signed by Denilson Perea MD in OV> 08/17/25 1207 DD/ 1139 TD/TT: 08/17/25 1143 Accountant Helper: Procedure Note Donotuseinterpreter, Image - 08/17/20[facility] [address] [place] [address] Ultrasound Report Signed Patient: Jaclyn Fink [facility]#: [id number] : 1985Acct:[id number] Age/Sex: 40 / FADM Date: 08/17/25 Loc: HO.MAMMO Attending Dr: Shay Jackson NP Ordering Physician: SHAY JACKSON NP Date of Service: 08/17/25 Procedure(s): US Breast RT Limited Mamm Only Accession Number(s): [id number] cc: SHAY JACKSON NP Reason for Exam: [...] 08/17/25 1207 DD/ 1139 TD/TT: 08/17/25 1143 Accountant Helper: us Shay [facility] IMG US PROCEDURES Final Result * BI Mammogram Diagnostic Tomosynthesis Bilateral (08/17/2025 11:05 AM EST) Anatomical Region Laterality Modality Breast Bilateral Mammography 08/17/2025 11:0 5 AM EST Narrative 08/17/2025 12:10 PM EST [facility] [address] [place] [address] Mammography Report Signed Patient: Jaclyn Fink MR#: [id number] : 1985 Acct:[id number] Age/Sex: 40 / F ADM Date: 08/17/25 Loc: HO.MAMMO Attending Dr: Shay Jackson NP Ordering Physician: SHAY JACKSON NP Results: 1Negative Date of Service: 08/17/25 Follow Up: 1 Year From Orig ina Mammogram Procedure(s): MM tomosynthesis diagnostic BI Accession Number(s): [id number] cc: SHAY JACKSON NP Reason For Exam: [...] by: Denilson Perea MD 08/17/2025 12:07 PM [facility] Dictated By: Denilson Perea MD Signed By: <Electronically signed by Denilson Perea MD in OV> 08/17/25 1207 DD/ 1105 TD/TT: 08/17/25 1130 Accountant Helper: Procedure Note Donotuseinterpreter, Image - 08/17/2025 [facility] [address] [place] [address] Mammography Report Signed Patient: Jaclyn Fink [facility]#: [id number] : 1985Acct:[id number] Age/Sex: 40 / FADM Date: 08/17/25 Loc: HO.MAMMO Attending Dr: Shay Jackson NP Ordering Physician: SHAY JACKSON NPResults: 1Negative Date of Service: 08/17/25Follow Up: 1 Year From Orig inal Mammogram Procedure(s): MM tomosynthesis diagnostic BI Accession Number(s): [id number] cc: SHAY JACKSON NP Reason For Exam: [...] 08/17/25 1207 DD/ 1105 TD/TT: 08/17/25 1130 Accountant Helper: Shay HILL IMRobyn BI PROCEDURES Final Result * POCT Rapid Influenza A MILLER ID NOW (07/27/2025 5:56 PM EST) Influenza A Negative Negative, Indeterminate [facility] QC Media Lot # [id number] [facility] Lot# Expiration Date [id number] [facility] Swab 07/27/2025 5:56 PM EST Cyndy Arce NP POINT OF CARE TEST ENTER/EDIT O RDERABLES Edited Result - Final [facility] [address] [place] [phone] * POCT Rapid Covid-19 MILLER ID NOW (07/27/2025 5:56 PM EST) Coronavirus Antigen PCR Negative Negative, Indeterminate, None Detected, Trace, 3+, Specimen unsatisfactory for evaluation, Weakly Positive, 1+, 2+ QC Media Lot # [id number] Lot# Expiration Date [phone] Swab 07/27/2025 5:56 PM EST [facility] [employer] POINT OF CARE TEST ENTER/EDIT O RDERABLES Final Result * POCT Rapid Influenza B MILLER ID NOW (07/27/2025 5:55 PM EST) Influenza B Negative Negative, Indeterminate [facility] QC Media Lot # [id number] [facility] Lot# Expiration Date ,[phone] [facility] Swab 07/27/2025 5:55 PM EST [facility] [employer] POINT OF CARE TEST ENTER/EDIT O RDERABLES Edited Result - Final [facility] [address] [place] [address] [phone] * CT Head w/o Contrast (06/17/2025 12:25 PM EDT) Anatomical Region Laterality Modality Head, Neck Computed Tomogra phy 06/17/2025 12:2 5 PM EDT Narrative 06/17/2025 12:53 PM EDT [address] [address] [address] Scan Report Signed Patient: Jaclyn Fink MR#: [id number] : 1985 Acct:[id number] Age/Sex: 40 / F ADM Date: 06/17/25 Loc: .ED Attending Dr: Ordering Physician: [place] Bhardwaj Date of Service: 06/17/25 Procedure(s): CT head/brain wo IV con Accession Number(s): [id number] cc: [place] Bhardwaj; SHAY JACKSON NP Report Number: [id number]: Total DLP = 632.00 mGy-cm Reason for Exam: L sided headache EXAMINATION: CT HEAD WITHOUT CONTRAST CLINICAL INFORMATION: Left-sided headache COMPARISON: None available. TECHNIQUE: Contiguous axial imaging was performed from the skull base to vertex without intravenous administration of contrast. This CT examination was performed using dose optimization techniques as appropriate, variously including the following: *Automated exposure control *Adjustment of mA and/or kV according to patient size (this includes techniques or standardized protocols for targeted exams where dose is matched to indication/reason for exam; i.e. extremities or head) *Use of iterative reconstruction technique FINDINGS: There is no evidence of acute intracranial hemorrhage or edematous large vessel territorial infarction. No abnormal mass effect or midline shift is seen. Cantu to white matter differentiation is well preserved. No abnormal extra-axial fluid collections are identified. The ventricles are normal in size. No abnormal attenuation in the brain parenchyma. No acute calvarial fracture.. Paranasal sinuses and mastoid air cells are well-aerated. CT/CT head/brain wo IV con IMPRESSION: No CT evidence of acute intracranial hemorrhage or edematous territorial infarction. The cause of the patient's symptoms has not been determined. Additional/follow-up imaging as clinically indicated. Electronically signed by: Pedro Alicea MD 06/17/2025 12:50 PM EDT Dictated By: Pedro Alicea MD Signed By: <Electronically signed by Pedro Alicea MD in OV> 06/17/25 1250 DD/ 1225 TD/TT: 06/17/25 1240 Accountant Helper: Procedure Note Donotuseinterpreter, Image - 06/17/[address] [address] [address] Scan Report Signed Patient: Jaclyn Fink [facility]#: [id number] : 1985Acct:[id number] Age/Sex: 40 / FADM Date: 06/17/25 Loc: HO.ED Attending Dr: Ordering Physician: [place] Bhardwaj Date of Service: 06/17/25 Procedure(s): CT head/brain wo IV con Accession Number(s): [id number] cc: [place] Bhardwaj; SHAY JACKSON NP Report Number: [id number]: Total DLP = 632.00 mGy-cm Reason for Exam: L sided headache EXAMINATION: CT HEAD WITHOUT CONTRAST CLINICAL INFORMATION: Left-sided headache COMPARISON: None available. TECHNIQUE: Contiguous axial imaging was performed from the skull base to vertex without intravenous administration of contrast. This CT examination was performed using dose optimization techniques as appropriate, variously including the following: *Automated exposure control *Adjustment of mA and/or kV according to patient size (this includes techniques or standardized protocols for targeted exams where dose is matched to indication/reason for exam; i.e. extremities or head) *Use of iterative reconstruction technique FINDINGS: There is no evidence of acute intracranial hemorrhage or edematous large vessel territorial infarction. No abnormal mass effect or midline shift is seen. Cantu to white matter differentiation is well preserved. No abnormal extra-axial fluid collections are identified. The ventricles are normal in size. No abnormal attenuation in the brain parenchyma. No acute calvarial fracture.. Paranasal sinuses and mastoid air cells are well-aerated. CT/CT head/brain wo IV con IMPRESSION: No CT evidence of acute intracranial hemorrhage or edematous territorial infarction. The cause of the patient's symptoms has not been determined. Additional/follow-up imaging as clinically indicated. Electronically signed by: Pdero Alicea MD 06/17/2025 12:50 PM EDT Dictated By: Pedro Alicea MD Signed By: <Electronically signed by Pedro Alicea MD in OV> 06/17/25 1250 DD/ 1225 TD/TT: 06/17/25 1240 Accountant Helper: FELICITY [facility] External Provider IMG CT PROCEDURES Final Result * HEPATITIS C ANTIBODY RFLX (11/14/2019 11:00 AM EDT) [facility] HEPATITIS C ANTIBODY NONREACTIVE NONREACTIVE [facility] Comment: Antibodies to HCV not detected; does not exclude early acute HCV infection. 11/14/2019 11:0 0 AM EDT us Slade Rodriguez MD HISTORICAL/NON ORDERABLE LABS Final Result [facility] [address] from Last 3 Months or Most Recently Relevant to Health Maintenance Insurance C3 Care Teams Geosciences Associate Professor Relationship Specialty Start Date End Date Shay Jackson ANP [address] [place] [phone] PCP - General Family Medicine 09/26/19
--- OUTSIDE RECORDS SUMMARY | 2025-08-22 21:17 | XMS_ITS | Encounter Summary ---
Author Organization [employer] Address [address] [facility] 7t [place] [address] Care Team Providers Care Body Stylist Name Role Phone Minal Workman Primary Care Provider [phone] Encounter Details Date Type Department Care Team (Late st Contact Info) Description 06/30/2024 Orders Only [facility] MEDICINE [address] [place], [place] [phone] Vidhya Preston NP [address] [place], [place] [phone] Moderate persistent asthma, unspecified whether complicated (Primary Dx); Moderate persistent asthma without complication Social History Tobacco Use Types Packs/Day Years [...] Encounters Date Type Department Care Team (Late Contact Info) Description 10/01/2025 1:00 PM EST Office Visit [facility] MEDICINE [address] [place], [place] [phone] Minal Workman ANP [address] [place], [place] [phone] documented as of this encounter Visit Diagnoses Diagnosis Moderate persistent asthma, unspecified whether complicated- Primary Moderate persistent asthma without complication documented in this encounter Care Teams Body Stylist Relationship Specialty Start Date End Date Minal Workman ANP [address] [place] [address] PCP - General Family Medicine 09/26/19 documented as of this encounter
--- OUTSIDE RECORDS SUMMARY | 2025-08-22 21:17 | XMS_ITS | Clinical Summary ---
Author Organization [employer] [facility] ity Address [id number] [place] [phone] Care Team Providers Care Early Years Teacher Name Role Phone Neptali Lopez MD Primary Care Provider [phone] Social History Tobacco Use Types Packs/Day Years [...] Depression Screening 09/03/2024 COVID-19 Vaccine (1 - 2024-2 6 season) 2025 Influenza Vaccine (#1) 2025 RSV [...] age to complete this topic Care Teams Early Years Teacher Relationship Specialty Start Date End Date Neptali Lopez MD [address] [place] [address] PCP - General Internal Medicine 02/08/18
--- OUTSIDE RECORDS SUMMARY | 2025-08-22 21:17 | XMS_ITS | Encounter Summary ---
Author Organization [employer] Address [address] [facility] [address] 7[address] [place] [address] Care Team Providers Care Master [place] Name Role Phone Minal Workman Primary Care Provider [phone] Encounter Details Date Type Department Care Team (Latest Contact Info) Description 08/17/2025 Results Follow-Up [facility] MEDICINE [address] [place], [place] [phone] Minal Workman ANP [address] [place] [address] BI Mammogram Diagnostic Tomosynthesis Bilateral, BI US Breast Limited Right Social History Tobacco Use Types Packs/Day Years [...] with others, in a hotel, in a long-term, living outside on the street, on a [...] as of this encounter Miscellaneous Notes * Result Encounter Note - SERGIO Graff - 08/17/2025 1:34 PM EST FYI Normal imaging, reviewed w/ pt. Thanks so much for your help! * Result Encounter Note - SERGIO Graff - 08/17/2025 1:33 PM EST Reviewed w pt documented in this encounter Plan of Treatment Upcoming Encounters Date Type Department Care Team (Late st Contact Info) Description 10/01/2025 1:00 PM EST Office Visit [facility] MEDICINE [address] [place], [place] [phone] Minal Workman ANP [address] [place] [address] documented as of this encounter Visit Diagnoses Not on filedocumented in this encounter Additional Health Concerns Assessment Noted Time PHQ-9 Depression Total Score: 13 025 2:50 PM EST documented as of this encounter Care Teams Master [place] Relationship Specialty Start Date End Date Minal Workman ANP [address] [place] [address] PCP - General Family Medicine 09/26/19 documented as of this encounter
--- OUTSIDE RECORDS SUMMARY | 2025-08-22 21:17 | XMS_ITS | Encounter Summary ---
Author Organization [employer] Address 75 [facility] 7 [place] [address] Care Team Providers Care Map And Chart Mounter Name Role Phone Minal Workman Primary Care Provider [phone] Reason for Visit * Reason Onset Date Comments Appointment Request 03/01/2023 Encounter Details Date Type Department Care Team (Late st Contact Info) Description 03/01/2023 Telephone [facility] MEDICINE [address] [place] [phone] Minal Workman ANP [address] [place] [address] Appointment Request Social History Tobacco Use Types Packs/Day Years Used Date Smoking Tobacco: Former Cigarettes Smokeless Tobacco: Never Comments Unknown Sex and Gender Information Value Date Recorded Sex Assigned at Female 07/03/2022 10:21 AM EDT Legal Sex Female 10:21 AM EDT Gender Identity Female 07/03/2022 10:21 AM EDT Sexual Orientation Straight 07/03/2022 10 :21 AM EDT documented as of this encounter Miscellaneous Notes * Telephone Encounter - Iwona Baer - 03/01/2023 3:01 PM EDT Tc from pt requesting a f/u appointment for asthma. Please contact pt at [phone] documented in this encounter Plan of Treatment Upcoming Encounters Date Type Department Care Team (Late st Contact Info) Description 10/01/2025 1:00 PM EST Office Visit [facility] MEDICINE [address] [place] [address] Minal Workman ANP [address] [place] [address] documented as of this encounter Visit Diagnoses Not on filedocumented in this encounter Care Teams Map And Chart Mounter Relationship Specialty Start Date End Date Minal Workman ANP [address] [place] [address] PCP - General Family Medicine 09/26/19 documented as of this encounter
--- OUTSIDE RECORDS SUMMARY | 2025-08-22 21:17 | XMS_ITS | Encounter Summary ---
Author Organization [employer] Address 75 [facility] 7 [place] [address] Care Team Providers Care Hourly Shift Name Role Phone Minal Workman Primary Care Provider [phone] Reason for Visit * Reason Onset Date Comments Referral 08/19/2025 Encounter Details Date Type Department Care Team ([facility] st Contact Info) Description 08/19/2025 Telephone [facility] MEDICINE 230 [place], [place] [phone] Minal Workman ANP [address] [place], [place] [phone] Referral Social History Tobacco Use Types Packs/Day Years [...] encounter Miscellaneous Notes * Telephone Encounter - Sarah Villanueva RN - 08/19/2025 4:30 PM EST Called pt, reviewed PCP made referral to [facility] breast surgeon for further evaluation.Per chart, pt has appointment 09/08/25 at 1:30pm. Informed pt of this. Letter generated with referral/appointment and mailed to pt today, told her to expect this via [place] the next few days. Pt verbalized understanding, in agreement with plan. * Telephone Encounter - Sarah Villanueva RN - 08/19/2025 4:26 PM EST ----- Message from Minal Workman sent at 08/19/2025 11:17 AM EST ----- Hi - can you please let Jaclyn know that I reviewed her case with our sterilisation technician who recommends thatdespite no findings on imaging, we refer for breast surgeon for further evaluation. I will send to Dr. Wei at [facility] or [facility] breast center, whichever can get pt in sooner. documented in this encounter Plan of Treatment Upcoming Encounters Date Type Department Care Team (Late st Contact Info) Description 10/01/2025 1:00 PM EST Office Visit [facility] MEDICINE [address] [place] [address] Minal Workman ANP [address] [place] [address] documented as of this encounter Visit Diagnoses Not on filedocumented in this encounter Additional Health Concerns Assessment Noted Time PHQ-9 Depression Total Score: 13 025 2:50 PM EST documented as of this encounter Care Teams Hourly Shift Relationship Specialty Start Date End Date Minal Workman ANP [address] [place] [phone] PCP - General Family Medicine 09/26/19 documented as of this encounter
--- OUTSIDE RECORDS SUMMARY | 2025-08-22 21:17 | XMS_ITS | Encounter Summary ---
Author Organization [employer] Address [address] [facility] 7 [place] [address] Care Team Providers Care Silk Finisher Name Role Phone Ji Minal HILL Primary Care Provider [phone] Encounter Details Date Type Department Care Team ([facility] st Contact Info) Description 08/22/2025 Orders Only GENERIC EXTERNAL DATA DEPARTMENT Provider, Generic External Data Social History Tobacco Use Types Packs/Day Years [...] with others, in a hotel, in a halfway, living outside on the street, on a [...] Description 10/01/2025 1:00 PM EST Office Visit [facility] MEDICINE 230 [place], [place] [phone] Minal Workman ANP [address] [place] [address] documented as of this encounter Procedures Procedure Name Priority Date/Time Associated Diagnosis Comments CBC WITH AUTO DIFFERENTIAL Routine 08/22/2025 7:32 PM EST HEPATIC FUNCTION PANEL Routine 08/22/2025 7:32 PM EST BASIC METABOLIC PANEL Routine 08/22/2025 7:32 PM EST documented in this encounter Results * Basic Metabolic Panel (08/22/2025 7:32 PM EST) Sodium 142 135 - 145 mmol/L [facility] Potassium 4.6 3.3 - 5.1 mmol/L [facility] Chloride 108 96 - 108 mmol/L [facility] Carbon Dioxide 24 22 - 29 mmol/L [facility] Anion Gap 15 12 - 20 [facility] Urea Nitrogen (BUN) 14 9 - 16 mg/dL [facility] Creatinine, Serum 0.74 0.5 - 1.4 mg/dL [facility] Creatinine Clr Calc Pharmacy 93.6 [facility] Comment:Provided height and weight: 167.64 cm,69.4 kg.eGFR (calculated from the MDRD study equation) and eCrCl(calculated from the Cockcroft-Gault equation) are based ondifferent parameters and may not yield comparable results.If eCrCl result is absurd, please check patient'sheight/weight. Estimated Glomerular Filt Rate >60 [facility] Comment:Chronic Kidney Disea se: Estimated GFR < 60 mL/min/1.65a0Vizfzu Kidney Disease: Estimated GFR < 15 mL/min/1.73m2 Glucose 90 60 - 115 mg/dL [facility] Calcium 9.8 8.4 - 10.2 mg/dL [facility] 08/22/2025 7:32 PM EST 08/22/2025 7:36 PM EST us Generic External Data Provider LAB BLOOD ORDERAB LES Final Result Performing Organization Address City/[facility]/ZIP Co de Phone Number [facility] [address] [place] [phone] * Hepatic Function Panel (08/22/2025 7:32 PM EST) Bilirubin, Total 0.2 0.0 - 1.0 mg/dL [facility] Bilirubin, Direct <0.2 0.0 - 0.5 mg/dL [facility] Aspartate Amino Transferase 27 5 - 31 U/L [facility] Alanine Aminotransferase 24 0 - 31 U/L [facility] Total Protein 7.6 6.5 - 8.0 g/dL [facility] Albumin Level 4.5 3.5 - 5.0 g/dL [facility] Alkaline Phosphatase 84 39 - 117 U/L [facility] 08/22/2025 7:32 PM EST 08/22/2025 7:36 PM EST us Generic External Data Provider LAB BLOOD ORDERAB LES Final Result [facility] [address] [place] [phone] * (ABNORMAL) CBC auto differential (08/22/2025 7:32 PM EST) White Blood Count 7.0 4.8 - 10.8 X10*3/uL [facility] Red Blood Count 4.84 4.20 - 5.50 X10*6/uL [facility] Hemoglobin 12.6 12.0 - 16.0 g/dl [facility] Hematocrit 38.3 37.0 - 47.0 % [facility] Mean Corpuscular Volume 79.1(L) 80.0 - 98.0 fL [facility] Mean Corpuscular Hemoglobin 26.0(L) 27.0 - 33.0 pg [facility] Mean Corpuscular HGB Conc 32.9 31.0 - 35.0 g/dl [facility] Red Cell Distribution Width 14.6 11.0 - 16.0 % [facility] Platelet Count 319 160 - 400 X10*3/uL [facility] Mean Platelet Volume 10.0 9.4 - 12.3 fL [facility] Neutrophils Percent Auto 70.8 45 - 73 % [facility] Imm Gran Pct Auto 0.1 0.0 - 0.4 % [facility] Lymphocytes Percent Auto 14.3(L) 20 - 40 % [facility] Monocytes Percent Auto 7.7 2 - 11 % [facility] Eosinophils Percent Auto 6.5(H) 0 - 4 % [facility] Basophils Percent Auto 0.6 0 - 2 % [facility] NRBC Pct Auto 0.0 0.0 - 0.2 /100WBC [facility] Neutrophils Absolute Auto 4.9 2.0 - 8.3 x10*3/uL [facility] Imm Gran Abs Auto 0.01 0.00 - 0.03 X10*3/uL [facility] Lymphocytes Absolute Auto 1.0(L) 1.2 - 4.9 X10*3/uL [facility] Monocytes Absolute Auto 0.5 0.1 - 1.2 X10*3/uL [facility] Eosinophils Absolute Auto 0.5(H) 0.0 - 0.4 X10*3/uL [facility] Basophils Absolute Auto 0.0 0.0 - 0.2 X10*3/uL [facility] NRBC Abs Auto 0.000 0.0 - 0.012 X10*3/uL [facility] 08/22/2025 7:32 PM EST 08/22/2025 7:36 PM EST us Generic External Data Provider LAB BLOOD ORDERAB LES Final Result Performing Organization Address City/State/[facility] Co de Phone Number [facility] [address] [place] [address] [phone] documented in this encounter Visit Diagnoses Not on filedocumented in this encounter Additional Health Concerns Assessment Noted Time PHQ-9 Depression Total Score: 13 025 2:50 PM EST documented as of this encounter Care Teams Silk Finisher Relationship Specialty Start Date End Date Minal Workman ANP [address] [place] [address] PCP - General Family Medicine 09/26/19 documented as of this encounter
--- OUTSIDE RECORDS SUMMARY | 2025-08-22 21:17 | XMS_ITS | Encounter Summary ---
Author Organization [employer] Address [address] [facility] 7 [place] [address] Care Team Providers Care Tele Rn Name Role Phone Minal Workman Primary Care Provider [phone] Reason for Visit * Reason Onset Date Comments chart prep 08/19/2025 Encounter Details Date Type Department Care Team ([facility] st Contact Info) Description 08/19/2025 Telephone [facility] MEDICINE [address] [place], [place] [phone] Emily Mcarthur CNM [address] [place] [address] chart prep Social History Tobacco Use Types Packs/Day Years [...] with others, in a hotel, in a half-way, living outside on the street, on a [...] encounter Miscellaneous Notes * Telephone Encounter - Asya Baer MA - 08/19/2025 4:08 PM EST ..Chart Prep Labs: not done Images: not applicable Vaccines due: Hep B Due and PCV20 Due Referrals: Not Applicable Screenings: LMP Overdue care gaps: Sbirt, Disability , and Oral Health documented in this encounter Plan of Treatment Upcoming Encounters Date Type Department Care Team (Late st Contact Info) Description 10/01/2025 1:00 PM EST Office Visit [facility] MEDICINE [address] [place] [address] Minal Workman ANP [address] [place] [address] documented as of this encounter Visit Diagnoses Not on filedocumented in this encounter Additional Health Concerns Assessment Noted Time PHQ-9 Depression Total Score: 13 025 2:50 PM EST documented as of this encounter Care Teams Tele Rn Relationship Specialty Start Date End Date Minal Workman ANP [address] [place] [phone] PCP - General Family Medicine 09/26/19 documented as of this encounter
--- OUTSIDE RECORDS SUMMARY | 2025-08-22 21:17 | XMS_ITS | Encounter Summary ---
Author Organization [employer] Address [address] [facility] 7t [place] [address] Care Team Providers Care Vrt Mechanic Name Role Phone Minal Workman Primary Care Provider [phone] Reason for Visit * Reason Onset Date Comments Nurse Triage 08/21/2023 Encounter Details Date Type Department Care Team (Late st Contact Info) Description 08/21/2023 Telephone [facility] MEDICINE [address] [place], [place] [phone] Minal Workman ANP [address] [place] [address] Nurse Triage Social History Tobacco Use Types [...] encounter Miscellaneous Notes * Telephone Encounter - Jane Carrion RN - 08/21/2023 10:50 AM EST Triage call Pt reports positive Covid test 08/20/23. Pt is calling with symptoms of cough, body aches, headache, no taste, sore throat and some diarrhea with with fatigue. Pt does have history of asthma. Pt is advised if fever of 103 or higher, difficulty breathing, chest pain/pressure must seek evaluation in ED. Pt denies these symptoms. Pt is advised to increase liquids 6-8 glasses per day, especially warm liquids, broth, decaf tea. Tylenol/motrin for pain, Pt is using nebulizer in the morning with little effect. 1-2 tsp of honey for sore throat/cough. Home isolation is reviewed. Pt was given 3rd republican televisit for adrianna [phone]. No further questions. Pt will call back if needed. Protocol Used: COVID-19 - Diagnosed or Suspected (Adult) Protocol-Based Disposition: Home Care Positive Triage Question: * COVID-19 diagnosed by positive lab test (e.g., PCR, rapid self-test kit) and mild symptoms (e.g.,cough, fever, others) and no complications or SOB * All higher-acuity triage questions were negative Care Advice Discussed: * Reassurance and Education - Positive COVID-19 Lab Test and Mild Symptoms * General Care Advice for COVID-19 Symptoms * Cough Medicines * Humidifier * Coughing Spells * Pain and Fever Medicines * Pain and Fever Medicines - Extra Notes and Warnings * Mild Stomach and Intestinal Symptoms During COVID-19 Illness * Reasons To Call Back - Fever over 103 F (39.4 C) - Fever lasts over 3 days - Fever returns after being gone for 24 hours - Chest pain or difficulty breathing occurs - You become worse * COVID-19 - How to Protect Others - When You Are Sick With COVID-19 * Clean Your Hands Often * Telephone Encounter - Javier Moy - 08/21/2023 10:34 AM EST Symptom: COVID-19 positive Outcome: Schedule a same-day appointment or talk to a nurse or provider today Reason: Caller denied all higher acuity questions The caller accepted this outcome documented in this encounter Plan of Treatment Upcoming Encounters Date Type Department Care Team (Late st Contact Info) Description 10/01/2025 1:00 PM EST Office Visit [facility] MEDICINE [address] [place] [address] Minal Workman, ANP [address] [place] [address] documented as of this encounter Visit Diagnoses Diagnosis Moderate persistent asthma without complication documented in this encounter Care Teams Vrt Mechanic Relationship Specialty Start Date End Date Minal Workman ANP [address] [place] [address] PCP - General Family Medicine 09/26/19 documented as of this encounter
--- NOTE | 2025-08-23 00:12 | PC.NURSE ---
Pt previously d/c from board as LWCT. T/w notified by registration staff that pt came up to desk stating she had been sleeping in the WR, placed in ED 3 for provider evaluation
--- NOTE | 2025-08-23 01:33 | PC.NURSE ---
Primary RN attempted to send UA, pt not visualized in Exam room, per Registration at first front ventilator, pt was seen leaving department at approximately 0115.
== END 2025-08-23 02:04 | disposition left against medical advice (07) ==
PROVIDERS: Nurse Practitioner Family; Emergency Provider Emergency Medicine Emergency Medical Services; PCP Nurse Practitioner Primary Care
DX: R19.05 Periumbilic swelling, mass or lump (principal); J45.909 Unspecified asthma, uncomplicated
CPT/HCPCS: 36415; 80048; 80076; 85025; 99281; 99283